=== PATIENT | male | born 1975 | race Hispanic/Latino ===

== ENCOUNTER 2021-03-01 07:31 | Inpatient (IN) | payer SELFPAY ==
--- NOTE | 2021-03-01 07:48 | RAD REPORT ---
EXAM DESCRIPTION: CT - Ct Stroke Brain Wo Cont - 03/01/2021 7:39 am CLINICAL HISTORY: Aphasia;Hemiplegia, right-sided weakness COMPARISON: No comparisons TECHNIQUE: Axial 5 millimeter thick images of the head were obtained without IV contrast. All CT scans are performed using dose optimization technique as appropriate and may include automated exposure control or mA/KV adjustment according to patient size. FINDINGS: No intracranial hemorrhage, mass, or cerebral edema. No acute cortical based infarction id entifiable at this time. There is no cortical edema or sulcal effacement seen. There is a subtle dimi nished attenuation in the left external capsule relative to the right. The overlying insular cortex i s not thickened or edematous. No extra-axial fluid collections. matter-white matter differentia tion is preserved.No atrophy or measurable chronic ischemic changes. Ventricles are normal size. Visualized portions of the mastoid air cells, paranasal sinuses, and orbits are unremarkable. No glob e or orbital content abnormality seen. Findings were telephoned to Dr Aldana at 7:41 a.m.. IMPRESSION: No CT evidence of acute intracranial process. Follow-up MR imaging could be performed for more sensitive assessment of the parenchyma acute CVA rem ains the primary diagnosis.
[2021-03-01 08:04] LABS: Protime INR 0.93
[2021-03-01 08:12] LABS: BUN Blood Urea Nitrogen 11 mg/dL (7-18); Bicarbonate 28 mmol/L (21-32); Glucose Level 280 mg/dL (74-106); Potassium 3.2 mmol/L (3.5-5.1); Sodium Level 137 mmol/L (136-145); Troponin (Emerg Dept Use Only) < 0.02 ng/mL (0.0-0.045)
--- NOTE | 2021-03-01 08:39 | RAD REPORT ---
EXAM DESCRIPTION: CT - Head angio - 03/01/2021 8:22 am CLINICAL HISTORY: TIA, stroke-like symptoms, right-sided weakness TECHNIQUE: During dynamic enhancement using nonionic IV contrast, axial 1 millimeter thick images of the head were obtained. Sagittal and axial reconstruction images were generated using MIP technique and reviewed. All CT scans are performed using dose optimization technique as appropriate and may include automated exposure control or mA/KV adjustment according to patient size. COMPARISON: CT head same date FINDINGS: No aneurysm or vascular malformation identified. Slight vascular fullness the left shakila n fissure is believed to be a summation artifact of adjacent artery and vein. Major venous sinuses are patent. No stenosis, named branch occlusion, vasculitis or other significant vascular finding identifiable. IMPRESSION: Negative CT angio head examination.
--- NOTE | 2021-03-01 08:44 | RAD REPORT ---
EXAM DESCRIPTION: CT - Neck Angio - 03/01/2021 8:26 am CLINICAL HISTORY: cva, right-sided weakness TECHNIQUE: During dynamic enhancement using nonionic IV contrast, axial 2 mm thick images of the nec k were obtained. Sagittal and axial reconstruction images were generated using MIP technique and revi ewed. All CT scans are performed using dose optimization technique as appropriate and may include automated exposure control or mA/KV adjustment according to patient size. COMPARISON: CT head same date, CT angio head same date FINDINGS: No aneurysm or vascular malformation identified. No carotid or vertebral dissection. No aortic arch or great vessel origin abnormality seen. Vertebral artery origins unremarkable as well . No stenosis, vasculitis or other significant carotid artery finding. No focal abnormality of either vertebral artery. Basilar artery is normal. IMPRESSION: Negative CT angio neck examination.
--- NOTE | 2021-03-01 09:04 | RAD REPORT ---
EXAM DESCRIPTION: RAD - Chest Single View - 03/01/2021 8:03 am CLINICAL HISTORY: cva, code stroke chest film COMPARISON: None TECHNIQUE: AP portable chest image was obtained 03/01/2021 8:03 am . FINDINGS: Lung volumes are low and the patient is rotated distorting the cardiomediastinal silhouett e. Lung markings are accentuated by the diminished volume. A dense mass or consolidation is not ident ifiable. A minimal interstitial edema or infiltrate unlikely but cannot be excluded. Heart and vascul ature are normal. No measurable pleural effusion and no pneumothorax. No acute bony abnormality seen. No acute aortic findings suspected. IMPRESSION: No acute cardiopulmonary process.
--- NOTE | 2021-03-01 09:37 | EDPHYS ---
Physician Documentation [facility] Name: Albin Francis Age: 45 yrs Sex: Male : 1975 Arrival Date: 03/01/2021 Time: 07:35 Bed 2 Private MD: ED Physician Christiano Aldana HPI: 03/01 09:23 This 45 yrs old Male presents to ER via EMS with complaints of S/S of Possible jr8 Stroke. 09:23 The patient's problem is reported as dysphasia, weakness, in the right upper extremity, jr8 in the right lower extremity. Onset: The symptoms/episode began/occurred acutely, this morning. Duration: The episode is continuous. Context: symptoms became apparent upon waking, occurred at home. The symptoms are alleviated by nothing. The symptoms are aggravated by walking. Associated signs and symptoms: The patient has no apparent associated signs or symptoms. Severity of symptoms: At their worst the symptoms were moderate in the emergency department the symptoms are unchanged. Patient's baseline: Neuro: alert and fully oriented, Motor: no deficits, Ambulation: walks without assistance, Speech: normal. The patient has not experienced similar symptoms in the past. The patient has not recently seen a physician. This is a 45-year-old male patient that presented to the emergency room with complaints of right-sided deficits. Stated that he went to bed at 0100 this morning and woke up with the deficits. Stated that he was unable to get out of bed very well which cleared him and on the deficits. Patient was brought to the emergency room at that time via EMS. Patient hypertensive upon arrival currently not on any medications for hypertension.. Historical: - Allergies: 07:55 No Known Allergies; jl7 - Home Meds: 07:55 None [Active]; jl7 - PMHx: 07:55 Hypertensive disorder; jl7 - PSHx: 07:55 Colostomy; jl7 - Immunization history:: Adult Immunizations unknown, Client reports receiving the 2nd dose of the Covid vaccine. - Social history:: Smoking status: Patient reports the use of cigarette tobacco products, smokes one-half pack cigarettes per day, Patient/guardian denies using alcohol, street drugs. ROS: 09:23 Eyes: Negative for injury, pain, redness, and discharge, ENT: Negative for injury, jr8 pain, and discharge, Neck: Negative for injury, pain, and swelling, Cardiovascular: Negative for chest pain, palpitations, and edema, Respiratory: Negative for shortness of breath, cough, wheezing, and pleuritic chest pain, Abdomen/GI: Negative for abdominal pain, nausea, vomiting, diarrhea, and constipation, Back: Negative for injury and pain, MS/Extremity: Negative for injury and deformity, Skin: Negative for injury, rash, and discoloration. 09:23 Neuro: Positive for weakness. Exam: : Radiologist reports: No acute findings jr8 09:23 Constitutional: This is a well developed, well nourished patient who is awake, alert, and in no acute distress. Eyes: Pupils equal round and reactive to light, extra-ocular motions intact. Lids and lashes normal. Conjunctiva and sclera are non-icteric and not injected. Cornea within normal limits. Periorbital areas with no swelling, redness, or edema. ENT: Nares patent. No nasal discharge, no septal abnormalities noted. Tympanic membranes are normal and external auditory canals are clear. Oropharynx with no redness, swelling, or masses, exudates, or evidence of obstruction, uvula midline. Mucous membranes moist. Neck: Trachea midline, no thyromegaly or masses palpated, and no cervical lymphadenopathy. Supple, full range of motion without nuchal rigidity, or vertebral point tenderness. No Meningismus. Cardiovascular: Regular rate and rhythm with a normal S1 and S2. No gallops, murmurs, or rubs. Normal PMI, no JVD. No pulse deficits. Respiratory: Lungs have equal breath sounds bilaterally, clear to auscultation and percussion. No rales, rhonchi or wheezes noted. No increased work of breathing, no retractions or nasal flaring. Abdomen/GI: Soft, non-tender, with normal bowel sounds. No distension or tympany. No guarding or rebound. No evidence of tenderness throughout. Back: No spinal tenderness. No costovertebral tenderness. Full range of motion. Skin: Warm, dry with normal turgor. Normal color with no rashes, no lesions, and no evidence of cellulitis. MS/ Extremity: Pulses equal, no cyanosis. Neurovascular intact. Full, normal range of motion. 09:23 Neuro: Orientation: to person, place, time \T\ situation. Mentation: is normal, Memory: is normal, Cranial nerves: CN I not tested, CN II- XII are normal as tested, extraocular movements are intact, Facial palsy and sensory deficits are absent. Speech is slurred, Tongue strength is normal, Cerebellar function: is grossly normal, Motor: moves all fours, strength is 4/5 in the right arm and right leg, Sensation: numbness, that is mild, of the right arm and right leg, seizure activity, is not displayed by the patient, Abnormal movements: there are no abnormal movements. Vital Signs: 07:26 BP 205 / 119; Pulse 77; Resp 15; Temp 97.4; Pulse Ox 96% on R/A; Weight 99.79 kg; Pain jl7 0/10; 08:00 BP 153 / 93; Pulse 67; Resp 15; Pulse Ox 94% ; 7 09:00 BP 188 / 108; Pulse 67; Resp 15; Pulse Ox 96% ; 09:30 BP 207 / 113; Pulse 89; Resp 15; Pulse Ox 97% ; 10:00 BP 176 / 117; Pulse 68; Resp 16; Pulse Ox 96% ; 7 10:30 BP 177 / 116; Pulse 78; Resp 16; Pulse Ox 96% ; 7 11:00 BP 198 / 109; Pulse 79; Resp 15; Pulse Ox 96% ; 7 11:30 BP 202 / 113; Pulse 90; Resp 15; Pulse Ox 95% ; 7 12:00 BP 203 / 99; Pulse 84; Resp 15; Pulse Ox 96% ; 7 12:30 BP 177 / 107; Pulse 63; Resp 16; Pulse Ox 95% ; 7 13:00 BP 183 / 103; Pulse 65; Resp 15; Pulse Ox 95% ; 7 13:30 BP 203 / 117; Pulse 87; Resp 16; Pulse Ox 96% ; 7 14:00 BP 193 / 110; Pulse 86; Resp 15; Pulse Ox 95% ; 7 14:30 BP 189 / 98; Pulse 72; Resp 15; Pulse Ox 95% ; 7 15:00 BP 199 / 101; Pulse 67; Resp 16; Pulse Ox 95% ; 7 15:30 BP 118 / 113; Pulse 81; Resp 15; Pulse Ox 94% ; jl7 NIH Stroke Scale Scores: 07:59 NIHSS Score: 6 jl7 09:35 NIHSS Score: 6 jr8 MDM: 07:35 Patient medically screened. 8 09:35 Data reviewed: vital signs, nurses notes, lab test result(s), EKG, radiologic studies, jr8 CT scan, plain films. Data interpreted: Pulse oximetry: on room air is 96 %. Interpretation: normal. Counseling: I had a detailed discussion with the patient and/or guardian regarding: the historical points, exam findings, and any diagnostic results supporting the discharge/admit diagnosis, lab results, radiology results, the need for further work-up and treatment in the hospital. 03/01 07:36 Order name: Basic Metabolic Panel; Complete Time: 09:18 03/01 07:36 Order name: CBC with Diff; Complete Time: 10:02 03/01 07:36 Order name: Magnesium; Complete Time: 09:18 03/01 07:36 Order name: Protime (+inr); Complete Time: 09:18 03/01 07:36 Order name: Ptt, Activated; Complete Time: 09:18 03/01 07:36 Order name: Troponin (emerg Dept Use Only); Complete Time: 09:18 03/01 07:36 Order name: CT Stroke Brain w/o Contrast; Complete Time: 08:01 03/01 07:36 Order name: Stroke CXR 1 View; Complete Time: 09:18 8 03/01 07:58 Order name: Glucose, Ancillary Testing; Complete Time: 08:01 EDMS 03/01 07:59 Order name: CT Head Angio; Complete Time: 09:18 03/01 08:46 Order name: CREATININE WHOLE BLOOD; Complete Time: 09:18 EDMS 03/01 12:21 Order name: SARS-COV-2 RT PCR; Complete Time: 12:21 EDMS 03/01 16:07 Order name: Hemoglobin A1c; Complete Time: 16:08 EDMS 03/01 07:36 Order name: EKG; Complete Time: 07:36 8 03/01 07:36 Order name: Accucheck; Complete Time: 11:05 03/01 07:36 Order name: Cardiac monitoring; Complete Time: 11:05 03/01 07:36 Order name: EKG - Nurse/Tech; Complete Time: 07:48 03/01 07:36 Order name: IV Saline Lock; Complete Time: 11:03/01 07:36 Order name: Labs collected and sent; Complete Time: 11:03/01 07:36 Order name: NPO; Complete Time: 11:03/01 07:36 Order name: O2 Per Protocol; Complete Time: 11:03/01 07:36 Order name: O2 Sat Monitoring; Complete Time: 11:03/01 07:36 Order name: Stroke Swallow Screen; Complete Time: 11:03/01 07:59 Order name: CT Neck Angio; Complete Time: 09:18 03/01 11:54 Order name: CONS Physician Consult EDMS Administered Medications: 11:16 Drug: foLIC Acid 1 mg Route: IVPB; Site: right forearm; 7 11:17 Follow up: Response: No adverse reaction; IV Status: Completed infusion jl7 11:16 Drug: Aspirin Chewable Tablet 81 mg Route: PO; jl7 12:00 Follow up: Response: No adverse reaction 7 11:17 Drug: PlaVIX (clopidogrel) 75 mg Route: PO; jl7 12:00 Follow up: Response: No adverse reaction jl7 Point of Care Testing: Blood Glucose: 07:26 Blood Glucose: 286 mg/dL; jl7 Ranges: Critical Glucose Levels:Adult <50 mg/dl or >400 mg/dl <40 mg/dl or >180 mg/dl Disposition: 03/02 07:48 Co-signature as Attending Physician, Christiano Aldana MD I agree with the assessment and ida plan of care. Disposition Summary: 03/01/21 09:37 Hospitalization Ordered Hospitalization Status: Inpatient Admission [facility] Provider: Fred Robles [facility] Location: Telemetry/MedSurg (Inpatient) [facility] Condition: Fair [facility] Problem: new [facility] Symptoms: have improved [facility] Bed/Room Type: Standard [facility] Room Assignment: 225(03/01/21 14:32) bd Diagnosis - Cerebral infarction, unspecified [facility] Forms: - Medication Reconciliation Form jr8 - SBAR form 8 NIH Stroke Scale - NIH Stroke Score Date: 03/01/2021 Time: 07:59 Total Score = 6 1a. Level of Consciousness (LOC) - 0(Alert) 1b. Level of Consciousness (LOC) (Month \T\ Age) - 0(Both) 1c. LOC Commands (Open \T\ Closes Eyes/Asl Interpreter) - 0(Both) 2. Best Gaze (Lateral Gaze Paresis) - 0(Normal) 3. Visual Field Loss - 0(No visual loss) 4. Facial Palsy - 0(Normal) 5a. Left Arm: Motor (10-second hold) - 0(No drift) 5b. Right Arm: Motor (10-second hold) - 2(Drift, some effort against gravity) 6a. Left Leg: Motor (5-second hold - always test supine) - 0(No drift) 6b. Right Leg: Motor (5-second hold - always test supine) - 2(Drift, some effort against gravity) 7. Limb Ataxia (finger/nose \T\ heel/jackson - test with eyes open) - 0(Absent) 8. Sensory Loss (pinprick arms/legs/face) - 1(Mild to moderate loss) 9. Best Language: Aphasia (description/naming/reading) - 0(No aphasia) 10. Dysarthria (speech clarity - read or repeat words) - 1(Mild to Moderate) 11. Extinction and Inattention (visual/tactile/auditory/spatial/personal) - 0(No abnormality) Initials: jl7 NIH Stroke Scale - NIH Stroke Score Date: 03/01/2021 Time: 09:35 Total Score = 6 1a. Level of Consciousness (LOC) - 0(Alert) 1b. Level of Consciousness (LOC) (Month \T\ Age) - 0(Both) 1c. LOC Commands (Open \T\ Closes Eyes/Asl Interpreter) - 0(Both) 2. Best Gaze (Lateral Gaze Paresis) - 0(Normal) 3. Visual Field Loss - 0(No visual loss) 4. Facial Palsy - 0(Normal) 5a. Left Arm: Motor (10-second hold) - 0(No drift) 5b. Right Arm: Motor (10-second hold) - 2(Drift, some effort against gravity) 6a. Left Leg: Motor (5-second hold - always test supine) - 0(No drift) 6b. Right Leg: Motor (5-second hold - always test supine) - 2(Drift, some effort against gravity) 7. Limb Ataxia (finger/nose \T\ heel/jackson - test with eyes open) - 0(Absent) 8. Sensory Loss (pinprick arms/legs/face) - 1(Mild to moderate loss) 9. Best Language: Aphasia (description/naming/reading) - 0(No aphasia) 10. Dysarthria (speech clarity - read or repeat words) - 1(Mild to Moderate) 11. Extinction and Inattention (visual/tactile/auditory/spatial/personal) - 0(No abnormality) Initials: jr8 Signatures: Dispatcher [employer] EDMS Nila Cesar Corey, MD MD cha Roszak, Josh, PA PA jr8 Natalia Payne RN RN jl7 Corrections: (The following items were deleted from the chart) 03/01 07:56 07:55 Home Meds: Unable to obtain; jl7 jl7 11:04 10:46 CORONAVIRUS+MR.LAB.BRZ ordered. EDMS EDMS 14:32 09:37 jr8 bd
--- NOTE | 2021-03-01 09:37 | ER ---
Nurse's Notes [facility] Name: Albin Francis Age: 45 yrs Sex: Male : 1975 Arrival Date: 03/01/2021 Time: 07:35 Bed 2 Private MD: Diagnosis: Cerebral infarction, unspecified Presentation: 03/01 07:26 Chief complaint: EMS states: Went to sleep at 0100, woke at 0600 with right sided jl7 weakness and slurred speech. 07:26 Coronavirus screen: Vaccine status: Patient reports receiving the 2nd dose of the covid jl7 vaccine. Date February 22, 2021 Pfizer Client denies travel out of the [place] in the last 14 days. At this time, the client does not indicate any symptoms associated with coronavirus-19. Ebola Screen: No symptoms or risks identified at this time. Initial Sepsis Screen: Does the patient meet any 2 criteria? No. Patient's initial sepsis screen is negative. Does the patient have a suspected source of infection? No. Patient's initial sepsis screen is negative. Risk Assessment: Do you want to hurt yourself or someone else? Patient reports no desire to harm self or others. Onset of symptoms is unknown. 07:26 Method Of Arrival: EMS: [facility] 07:26 Acuity: JORDAN 2 [facility] 07:54 An acute neurological deficit is present. The charge nurse has been notified. The [facility] patient has been moved to a treatment area. Pre-hospital glucose is not applicable to this patient. Care prior to arrival: None. Triage Assessment: 07:26 The onset of the patients symptoms was at an unknown time. General: Appears in no jl apparent distress. uncomfortable, Behavior is calm, cooperative, appropriate for age. Pain: Denies pain. Neuro: Level of Consciousness is awake, alert, obeys commands, Oriented to person, place, time, situation, Reports weakness in right arm and right leg. Cardiovascular: Patient's skin is warm and dry. Respiratory: Airway is patent Respiratory effort is even, unlabored, Respiratory pattern is regular, symmetrical. GI: Abdomen is obese. Derm: Skin is pink, warm \T\ dry. Stroke Activation: Symptom onset > 6 hours Physician: Stroke Attending; Name: ; Notified At: ; Arrived At: Physician: Chief Stroke Resident; Name: ; Notified At: ; Arrived At: Physician: Stroke Resident; Name: ; Notified At: ; Arrived At: Physician: ED Attending; Name: Jovan; Notified At: 07:26; Arrived At: 07:26 Physician: ED Resident; Name: ; Notified At: ; Arrived At: Historical: - Allergies: 07:55 No Known Allergies; jl7 - Home Meds: 07:55 None [Active]; jl7 - PMHx: 07:55 Hypertensive disorder; jl7 - PSHx: 07:55 Colostomy; jl7 - Immunization history:: Adult Immunizations unknown, Client reports receiving the 2nd dose of the Covid vaccine. - Social history:: Smoking status: Patient reports the use of cigarette tobacco products, smokes one-half pack cigarettes per day, Patient/guardian denies using alcohol, street drugs. Screenin:00 Abuse screen: Denies threats or abuse. Denies injuries from another. Nutritional jl7 screening: No deficits noted. Tuberculosis screening: No symptoms or risk factors identified. Fall Risk No fall in past 12 months (0 pts). Secondary diagnosis (15 points) CVA, IV access (20 points). Ambulatory Aid- None/Bed Rest/Nurse Assist (0 pts). Gait- Weak (10 pts.). Mental Status- Oriented to own ability (0 pts). Total Vale Fall Scale indicates High Risk Score (45 or more points). Fall prevention measures have been instituted. Side Rails Up X 2 Placed Close to Nursing Station Frequent Obs/Assessments Occuring As available patient and family educated on Fall Prevention Program and Strategies. Assessment: 07:59 VAN Scoring: Arm Drift: Severe drift Visual Disturbance: No visual disturbance noted. jl7 Aphasia: No aphasia noted. Neglect: No neglect noted. The patient has not been NPO before screening. The patient is currently on the following diet: home The patient is alert, and able to follow commands. The patient exhibits slurred or garbled speech. Provider notified of the indication for Speech Therapy consult. The patient is not exhibiting difficulty speaking. The patient does not exhibit difficulty understanding words. The patient is able to swallow own secretions with no drooling or need for suction. Patient tolerated one teaspoon of water. No drooling, immediate coughing, gurgling, or clearing of the throat was noted. The patient tolerated 90mL of water. No drooling, immediate coughing, gurgling, or clearing of the throat was noted. The patient passed the bedside swallow screening. Oral medications may be given as ordered. Contact Physician for further diet orders. Provider notified of bedside swallow screening results: Pranav ALCALA. T-PA (Activase) Screening: Contraindications: Patient reports onset of signs and symptoms of stroke greater than 6 hours ago: Yes. 08:15 Reassessment: Pt to CT via stretcher. jl7 09:00 Reassessment: Patient appears in no apparent distress at this time. No changes from jl7 previously documented assessment. Patient and/or family updated on plan of care and expected duration. Pain level reassessed. Patient is alert, oriented x 3, equal unlabored respirations, skin warm/dry/pink. 10:00 Reassessment: Patient appears in no apparent distress at this time. No changes from jl7 previously documented assessment. Patient and/or family updated on plan of care and expected duration. Pain level reassessed. Patient is alert, oriented x 3, equal unlabored respirations, skin warm/dry/pink. 11:00 Reassessment: Patient appears in no apparent distress at this time. No changes from jl7 previously documented assessment. Patient and/or family updated on plan of care and expected duration. Pain level reassessed. Patient is alert, oriented x 3, equal unlabored respirations, skin warm/dry/pink. 12:00 Reassessment: Patient appears in no apparent distress at this time. No changes from jl7 previously documented assessment. Patient and/or family updated on plan of care and expected duration. Pain level reassessed. Patient is alert, oriented x 3, equal unlabored respirations, skin warm/dry/pink. 13:00 Reassessment: Patient appears in no apparent distress at this time. No changes from jl7 previously documented assessment. Patient and/or family updated on plan of care and expected duration. Pain level reassessed. Patient is alert, oriented x 3, equal unlabored respirations, skin warm/dry/pink. 14:00 Reassessment: Patient appears in no apparent distress at this time. No changes from jl7 previously documented assessment. Patient and/or family updated on plan of care and expected duration. Pain level reassessed. Patient is alert, oriented x 3, equal unlabored respirations, skin warm/dry/pink. 15:32 Reassessment: pt to MRI via stretcher. kc4 Vital Signs: 07:26 BP 205 / 119; Pulse 77; Resp 15; Temp 97.4; Pulse Ox 96% on R/A; Weight 99.79 kg; Pain jl7 0/10; 08:00 BP 153 / 93; Pulse 67; Resp 15; Pulse Ox 94% ; jl7 09:00 BP 188 / 108; Pulse 67; Resp 15; Pulse Ox 96% ; jl7 09:30 BP 207 / 113; Pulse 89; Resp 15; Pulse Ox 97% ; jl7 10:00 BP 176 / 117; Pulse 68; Resp 16; Pulse Ox 96% ; jl7 10:30 BP 177 / 116; Pulse 78; Resp 16; Pulse Ox 96% ; jl7 11:00 BP 198 / 109; Pulse 79; Resp 15; Pulse Ox 96% ; jl7 11:30 BP 202 / 113; Pulse 90; Resp 15; Pulse Ox 95% ; jl7 12:00 BP 203 / 99; Pulse 84; Resp 15; Pulse Ox 96% ; jl7 12:30 BP 177 / 107; Pulse 63; Resp 16; Pulse Ox 95% ; jl7 13:00 BP 183 / 103; Pulse 65; Resp 15; Pulse Ox 95% ; jl7 13:30 BP 203 / 117; Pulse 87; Resp 16; Pulse Ox 96% ; jl7 14:00 BP 193 / 110; Pulse 86; Resp 15; Pulse Ox 95% ; jl7 14:30 BP 189 / 98; Pulse 72; Resp 15; Pulse Ox 95% ; jl7 15:00 BP 199 / 101; Pulse 67; Resp 16; Pulse Ox 95% ; jl7 15:30 BP 118 / 113; Pulse 81; Resp 15; Pulse Ox 94% ; jl7 NIH Stroke Scale Scores: 07:59 NIHSS Score: 6 jl7 09:35 NIHSS Score: 6 jr8 ED Course: 07:26 Arm band placed on right wrist. jl7 07:35 Patient arrived in ED. jr8 07:35 Pranav Burnett PA is PHCP. jr8 07:35 Christiano Aldana MD is Attending Physician. jr8 07:39 CT Stroke Brain w/o Contrast In Process Unspecified. EDMS 07:48 EKG done, by ED staff, reviewed by Pranav ALCALA. em1 07:50 Natalia Payne, AIDEN is Primary Nurse. jl7 07:53 Triage completed. jl7 08:00 Patient has correct armband on for positive identification. Placed in gown. Bed in low jl7 position. Call light in reach. Side rails up X2. internal medicine doctor on. Pulse ox on. NIBP on. Warm blanket given. 08:03 Stroke CXR 1 View In Process Unspecified. EDMS 08:22 CT Head Angio In Process Unspecified. EDMS 08:26 CT Neck Angio In Process Unspecified. EDMS 09:36 Fred Robles is Hospitalizing Provider. jr8 15:45 Nicci Bose is Primary Nurse. kc4 15:46 Nicci Bose is Primary Nurse. kc4 15:52 Natalia Payne, AIDEN is Primary Nurse. jl7 16:11 Patient admitted, IV remains in place. intact, No redness/swelling at site. jl7 16:11 No provider procedures requiring assistance completed. jl7 Administered Medications: 11:16 Drug: foLIC Acid 1 mg Route: IVPB; Site: right forearm; jl7 11:17 Follow up: Response: No adverse reaction; IV Status: Completed infusion jl7 11:16 Drug: Aspirin Chewable Tablet 81 mg Route: PO; jl7 12:00 Follow up: Response: No adverse reaction jl7 11:17 Drug: PlaVIX (clopidogrel) 75 mg Route: PO; jl7 12:00 Follow up: Response: No adverse reaction jl7 Point of Care Testing: Blood Glucose: 07:26 Blood Glucose: 286 mg/dL; jl7 Ranges: Outcome: 09:37 Decision to Hospitalize by Provider. jr8 16:11 Admitted to Tele accompanied by [facility], via stretcher, room 225, with chart, Report jl7 called to AIDEN Fung 16:11 Condition: stable 16:11 Discharge instructions given to patient, Instructed on the need for admit, Demonstrated understanding of instructions. 16:12 Patient left the ED. jl7 NIH Stroke Scale - NIH Stroke Score Date: 03/01/2021 Time: 07:59 Total Score = 6 1a. Level of Consciousness (LOC) - 0(Alert) 1b. Level of Consciousness (LOC) (Month \T\ Age) - 0(Both) 1c. LOC Commands (Open \T\ Closes Eyes/Soft Sugar Operator Head) - 0(Both) 2. Best Gaze (Lateral Gaze Paresis) - 0(Normal) 3. Visual Field Loss - 0(No visual loss) 4. Facial Palsy - 0(Normal) 5a. Left Arm: Motor (10-second hold) - 0(No drift) 5b. Right Arm: Motor (10-second hold) - 2(Drift, some effort against gravity) 6a. Left Leg: Motor (5-second hold - always test supine) - 0(No drift) 6b. Right Leg: Motor (5-second hold - always test supine) - 2(Drift, some effort against gravity) 7. Limb Ataxia (finger/nose \T\ heel/jackson - test with eyes open) - 0(Absent) 8. Sensory Loss (pinprick arms/legs/face) - 1(Mild to moderate loss) 9. Best Language: Aphasia (description/naming/reading) - 0(No aphasia) 10. Dysarthria (speech clarity - read or repeat words) - 1(Mild to Moderate) 11. Extinction and Inattention (visual/tactile/auditory/spatial/personal) - 0(No abnormality) Initials: jl7 NIH Stroke Scale - NIH Stroke Score Date: 03/01/2021 Time: 09:35 Total Score = 6 1a. Level of Consciousness (LOC) - 0(Alert) 1b. Level of Consciousness (LOC) (Month \T\ Age) - 0(Both) 1c. LOC Commands (Open \T\ Closes Eyes/Soft Sugar Operator Head) - 0(Both) 2. Best Gaze (Lateral Gaze Paresis) - 0(Normal) 3. Visual Field Loss - 0(No visual loss) 4. Facial Palsy - 0(Normal) 5a. Left Arm: Motor (10-second hold) - 0(No drift) 5b. Right Arm: Motor (10-second hold) - 2(Drift, some effort against gravity) 6a. Left Leg: Motor (5-second hold - always test supine) - 0(No drift) 6b. Right Leg: Motor (5-second hold - always test supine) - 2(Drift, some effort against gravity) 7. Limb Ataxia (finger/nose \T\ heel/jackson - test with eyes open) - 0(Absent) 8. Sensory Loss (pinprick arms/legs/face) - 1(Mild to moderate loss) 9. Best Language: Aphasia (description/naming/reading) - 0(No aphasia) 10. Dysarthria (speech clarity - read or repeat words) - 1(Mild to Moderate) 11. Extinction and Inattention (visual/tactile/auditory/spatial/personal) - 0(No abnormality) Initials: stone Signatures: Dispatcher [employer] Greg Khan em1 Pranav Burnett PA PA jr8 Natalia Payne RN RN jl7 Nicci Bose4 Corrections: (The following items were deleted from the chart) 07:56 07:55 Home Meds: Unable to obtain; alecia alston
[2021-03-01 09:44] LABS: Absolute Lymphocytes (CBC) 1.5 K/uL (0.7-4.9); Basophils % 0.6 % (0-1.3); Hematocrit 46.7 % (39.6-49.0); Lymphocytes % 21.5 % (15.3-44.8); MPV 8.9 fL (7.6-11.3); RBC Red Blood Cell Count 5.34 M/uL (4.33-5.43)
[2021-03-01] MEDS ORDERED: CLOPIDOGREL 75 MG TABLET ONE (11:32)
[2021-03-01] MEDS ORDERED: FOLIC ACID 5 MG/ML VIAL ONE (11:33)
[2021-03-01] MEDS ORDERED: ASPIRIN 81 MG CHEWABLE TABLET ONE (11:34)
[2021-03-01] MEDS ORDERED: ONDANSETRON 4 MG/2 ML VIAL IV PRN (12:17)
[2021-03-01] MEDS ORDERED: POTASSIUM CL SA 10 MEQ TAB PO ONE (15:58)
--- NOTE | 2021-03-01 17:19 | RAD REPORT ---
EXAM DESCRIPTION: MRI - Brain W/Wo Cont - 03/01/2021 4:57 pm CLINICAL HISTORY: Aphasia;Hemiplegia, right-sided weakness COMPARISON: head CT March 01, 2021 TECHNIQUE: Axial, sagittal, and coronal magnetic images of the brain were obtained. 20 cc MultiHance administered intravenously FINDINGS: Small area of abnormal signal within the white matter left frontal lobe and right thalamus compatible with old infarction. The ventricles are normal in caliber. Diffusion-weighted/ ADC mapping sequences demonstrate 2.1 x 0.9 centimeter area of abnormal signal wi thin the white matter adjacent to posterior aspect of the left lateral ventricle. This is compatible with acute infarction. No abnormal enhancement within the brain is seen. An extra-axial fluid collection is not noted. Fluid within the sinuses/mastoids is not seen IMPRESSION: 2.1 x 0.9 centimeter acute left periventricular white matter infarct
--- NOTE | 2021-03-01 17:20 | RAD REPORT ---
EXAM DESCRIPTION: MRI - MRA Neck W/Wo Cont - 03/01/2021 4:56 pm CLINICAL HISTORY: Aphasia;Hemiplegia, right-sided weakness COMPARISON: None. TECHNIQUE: Magnetic resonance angiogram of the neck was performed. 20 cc MultiHance was administered intravenously. 3D MIPS reconstruction performed FINDINGS: Mild plaque within common carotid, internal carotid and external carotid arteries . A high -grade stenosis is not noted. The vertebral arteries are codominant without visualization of an abnormality. IMPRESSION: Mild plaque within the carotid arteries NASCET criteria used. Mild 0-49% stenosis Moderate 50-69% stenosis Severe 70-99% stenosis
--- NOTE | 2021-03-01 17:21 | RAD REPORT ---
EXAM DESCRIPTION: MRI - MRA Head Wo Cont - 03/01/2021 4:50 pm CLINICAL HISTORY: Aphasia;Hemiplegia, right-sided weakness COMPARISON: None. TECHNIQUE: Magnetic resonance angiogram was performed. 3D MIPS reconstruction performed FINDINGS: The anterior cerebral, middle cerebral, posterior cerebral, distal internal carotid and ba silar arteries do not demonstrate a significant stenosis. An aneurysm is not displayed. IMPRESSION: Unremarkable MRA brain.
--- NOTE | 2021-03-01 18:00 | P.HP ---
Certification for Inpatient Patient admitted to: Inpatient With expected LOS: >2 Midnights Patient will require the following post-hospital care: Rehabilitation Practitioner: I am a practitioner with admitting privileges, knowledge of patient current condition, hospital course, and medical plan of care. Services: Services provided to patient in accordance with Admission requirements found in Title 42 Section 412.3 of the Code of Federal Regulations Patient History Date of Service: 03/01/21 Primary Care Provider: none Reason for admission: possible CVA History of Present Illness: This is a 45 y/o M with HTN who presents today with new onset right sided motor deficits. Last known normal was this morning before he went to bed. Woke up this morning and had trouble getting out of bed. C/o weakness and numbness on the R side and slurred speech. States this has never occurred before. Pt has not seen a doctor recently. Pt hypertensive upon arrival at ER. NIHSS of 6 Neck CTA IMPRESSION: Negative CT angio neck examination. Head CTA: IMPRESSION: Negative CT angio head examination. Brain CT: IMPRESSION: No CT evidence of acute intracranial process. Follow-up MR imaging could be performed for more sensitive assessment of the parenchyma acute CVA remains the primary diagnosis. CXR: IMPRESSION: Negative CT angio head examination. Allergies No Known Allergies Allergy (Unverified 03/01/21 12:17) Home Medications: NK [No Home Meds] 03/01/21 - Past Medical/Surgical History -: HTN -: colostomy Psychosocial/ Personal History: lives with - Social History Smoking Status: Light Tobacco smoker (1-9 cigarettes/day) Alcohol use: Yes CD- Drugs: No Caffeine use: Yes Review of Systems 10-point ROS is otherwise unremarkable Physical Examination - Vital Signs Temperature: 98.2 F Blood Pressure: 202/119 Pulse: 80 Respirations: 18 Pulse Ox (%): 97 - Physical Exam General: Alert, Oriented x3, Cooperative HEENT: Atraumatic, Mucous membr. moist/pink, EOMI Neck: Supple Respiratory: Clear to auscultation bilaterally, Normal air movement Cardiovascular: No edema, Normal S1 S2 Capillary refill: <2 Seconds Gastrointestinal: Normal bowel sounds, Soft and benign, No tenderness, Other (colostomy bag present) Musculoskeletal: No swelling, No contractures, No warmth Integumentary: No rashes, No breakdown Neurological: Sensation intact, Normal affect, Abnormal speech (slurred speech), Abnormal strength (R sided weakness in arm and leg) Lymphatics: No axilla or inguinal lymphadenopathy - Studies Laboratory Data (last 24 hrs) 03/01/21 07:45: PT 10.7, INR 0.93, APTT 24.0 L 03/01/21 07:45: WBC 7.00, Hgb 16.3, Hct 46.7, Plt Count 211 03/01/21 07:45: Sodium 137, Potassium 3.2 L, BUN 11, Creatinine 0.52 L, Glucose 280 H, Magnesium 2.0 Assessment and Plan - Plan impression: R sided hemiparesis likely to CVA HTN plan: will admit patient under stroke protocol neuro consulted aspirin/plavix start statin, folic acid MRI ordered carotid u/s ordered PT/ST consulted swallow eval at bedside, diet as tolerated if patient passes lipid panel and A1c pending DVT prophylaxis: lovenox Discharge Plan: Home Plan to discharge in: Greater than 2 days - Advance Directives Does patient have a Living Will: No Does patient have a Durable POA for Healthcare: No - Code Status/Comfort Care Code Status Assessed: Yes (full) Time Spent Managing Pts Care (In Minutes): 70
[2021-03-01 18:04] VITALS: BMI 35.5
[2021-03-01] MEDS: NA CHLORIDE 0.9% 1,000 ML IV SCH (18:20)
--- NOTE | 2021-03-01 18:44 | RAD REPORT ---
EXAM DESCRIPTION: USCarotid Artery Bilateral03/01/2021 6:37 pm CLINICAL HISTORY: cva FINDINGS: The velocity of the right internal carotid artery equals 48 cm/sec. The right ICA/CCA rati o .5 The velocity of the left internal carotid artery equals 59 cm/sec. The left ICA/CCA ratio .9 Mild plaque is present within the carotid arteries. The vertebral arteries demonstrate antegrade flow IMPRESSION: Mild plaque within the carotid arteries without evidence of a hemodynamically significan t stenosis NASCET criteria used. Mild 0-49% stenosis Moderate 50-69% stenosis Severe 70-99% stenosis
[2021-03-02] MEDS: NA CHLORIDE 0.9% 1,000 ML IV SCH ×2 (02:20→15:44)
[2021-03-02] MEDS ORDERED: KCL 20 MEQ/100 mL IVPB 20 MEQ/100 ML BAG IV SCH (04:00)
[2021-03-02 06:15] LABS: Absolute Lymphocytes (CBC) 2.2 K/uL (0.7-4.9); Basophils % 0.6 % (0-1.3); Hematocrit 46.6 % (39.6-49.0); Lymphocytes % 23.6 % (15.3-44.8); MPV 8.2 fL (7.6-11.3); RBC Red Blood Cell Count 5.29 M/uL (4.33-5.43)
[2021-03-02 06:44] LABS: BUN Blood Urea Nitrogen 11 mg/dL (7-18); Bicarbonate 28 mmol/L (21-32); Glucose Level 211 mg/dL (74-106); HDL Cholesterol 31 mg/dL (40-60); Sodium Level 139 mmol/L (136-145)
[2021-03-02 06:56] LABS: LDL, Direct 148 mg/dL (100-129)
[2021-03-02] MEDS: CLOPIDOGREL 75 MG TABLET PO SCH (08:41)
[2021-03-02] MEDS: ASPIRIN EC 81 MG TAB PO SCH (08:41)
[2021-03-02] MEDS: ENOXAPARIN 40 MG/0.4 ML SQ SCH (08:41)
[2021-03-02] MEDS: FOLIC ACID 1 MG TABLET PO SCH (08:41)
[2021-03-02 13:05] LABS: Urine Appearance CLOUDY (Clear); Urine Bilirubin NEGATIVE (Negative); Urine Blood NEGATIVE (Negative); Urine Color YELLOW (Yellow); Urine Glucose 3+ (Negative); Urine Microscopic Reflex ORDER UMIC; Urine Protein 2+ (Negative); Urine Specific Gravity 1.025 (1.005-1.030); Urine Urobilinogen 0.2 mg/dL (0.2-1.0)
[2021-03-02 13:18] LABS: Urine Amorphous Sediment 1+ /HPF (NONE SEEN); Urine Bacteria <20 /HPF (NONE SEEN); Urine Mucus 2+ /HPF (NONE SEEN); Urine RBC <5 /HPF (NONE SEEN)
[2021-03-02] MEDS ORDERED: D50W 25 GM/50 ML SYRINGE IV PRN (13:26)
[2021-03-02] MEDS ORDERED: GLUCAGON 1 MG/VIAL IM PRN (13:26)
--- NOTE | 2021-03-02 13:44 | P.PN ---
Subjective Date of Service: 03/02/21 Primary Care Provider: none Chief Complaint: possible CVA Subjective: Improving (able to move extremities more than yesterday, improved speech) <Gay Brooks - Last Filed: 03/02/21 13:27> Date of Service: 03/02/21 <Coleman Lacy - Last Filed: 03/02/21 17:55> Review of Systems 10-point ROS is otherwise unremarkable <Gay Brooks - Last Filed: 03/02/21 13:27> Physical Examination - Vital Signs Temperature: 98.0 F Blood Pressure: 201/106 Pulse: 83 Respirations: 16 Pulse Ox (%): 92 <Gay Brooks - Last Filed: 03/02/21 13:27> Assessment And Plan - Plan physical exam: General: Alert, Oriented x3, Cooperative HEENT: Atraumatic, Mucous membr. moist/pink, EOMI Respiratory: Clear to auscultation bilaterally, Normal air movement Cardiovascular: No edema, Normal S1 S2 Gastrointestinal: Normal bowel sounds, Soft and benign, No tenderness, Colostomy bag present Musculoskeletal: No swelling, No contractures, No warmth Integumentary: No rashes, No breakdown Neurological: Normal affect, normal tone, CECILIO 4/5 PAIGE and RLL impression: R sided hemiparesis secondary to acute brain infarct HTN new diagnosis of diabetes hyperlipidemia plan: imaging consistent with acute infarct patient's motor function improving. able to move extremities better than yesterday speech is more clear today neuro consulted aspirin/plavix continue statin, folic acid PT/ST consulted NPO until speech can evaluate accuchecks and mild SSI consistently elevated blood pressures - start IV hydralazine prn will start lisinopril tomorrow once patient is no longer NPO educated patient on lifestyle changes code: full DVT prophylaxis: lovenox Time Spent Managing PTS Care (In Minutes): 30 <Gay Brooks - Last Filed: 03/02/21 13:27> - Plan Patient seen and examined this morning Has had some improvement in right-sided weakness PT/ST consulted, still with some slurring significant HTN - IV hydralazine ordered, goal for SBP: 180s <Coleman Lacy - Last Filed: 03/02/21 17:55>
[2021-03-02] MEDS: INSULIN -REGULAR HUMAN 50 UNIT/0.5 ML ML SQ SCH ×2 (16:14→21:00)
--- NOTE | 2021-03-02 21:48 | CON ---
Reason For Consultation: Consultation called because of stroke. History Of Present Illness: Mr. Morales is a 45-year-old, left-handed patient who has hyperten gudelia. Does not take his medications, and yesterday morning developed sudden onset right face, arm an d leg numbness, weakness, slurred speech and incoordination. The patient was brought to [facility]. However, in terms of symptom onset, he woke at 6 a.m. with the symptoms with sleep around 1 a.m. and he arrived at [facility] at 7:35 while out of the window for TPA. He did have a h ead CT scan at [facility] showing no evidence of acute ischemic or hemorrhagic change, howev er a subsequent brain MRI identified a 2.1 x 0.9 cm area of abnormal signal in the white matter adjac ent to the posterior aspect of the left lateral ventricle compatible with acute infarction, and this did account for patient's right-sided deficits. In the emergency room, he did have hypokalemia and i t was replaced. He was given folic acid, Plavix, aspirin, and he had very elevated blood pressures w ith around 201/106, and his blood pressures have been addressed gingerly and to lower them to around 180 over the next day or two. He has noted some slight improvement in right upper and lower extremit y strength since symptom onset. Past Medical History: As noted. Social History: He smokes tobacco, half a pack cigarettes daily and some alcohol. No IV drug use. Past Surgical History: Had a colostomy. Past Medical History: Hypertension. Medications: At home none. Allergies: NO KNOWN DRUG ALLERGIES. Review of Systems: Negative on 10-point system aside from mentioned above including nausea, vomiting, myalgias, arthralg ias, headache, weight change, rash, psychiatric complaints, gastrointestinal, genitourinary complaint s. Physical Examination: Vital Signs: Blood pressure , pulse 85, respiratory rate 16, temperature 98.5, oxygen satu ration 96% on room air. Weight 220 pounds, height 5 feet 6 inches, BMI 35.5. General: Mr. Morales is resting in bed, in no acute distress. HEENT: He is normocephalic, atraumatic. Sclerae anicteric. Oropharynx is pink and moist. Neck: Supple. Chest: Clear. Heart: Regular. Extremities: Show no edema or cyanosis. Neurological: He is alert and oriented to situation, place, and person. He communicates effectively , more so in [place]ese than [place]. Cranial nerves remarkable for right, decreased nasolabial fold. Mild extinction in the right visual field. His tongue extrudes in the midline and his right shoulder has 4/5 elevation. He has right upper and lower extremity 3+ to 4-/5 proximally and distally. Left upper and lower extremity 5/5. Sensation decreased to light touch temperature in the right arm and leg compared to the left side. Coordination intact in upper and lower extremities. Gait, he will be ambulated with the physical therapist, and after the evaluation, it was recommended for him to be di scharged to inpatient rehabilitation unit due to decreased mobility and weakness in the right upper e xtremity. It should be noted that the patient has no resources, and therefore he is not able to be a dmitted in to the rehabilitation unit unless some other plan could be made. Laboratory Studies: Complete blood count with differential is normal. Coagulation panel shows aviva l INR 0.93. Chemistries show blood glucose elevated to 286. Hemoglobin A1c elevated at 9.9, triglyc erides elevated at 585, cholesterol elevated at 264, LDL cholesterol 148, HDL cholesterol low at 31. TSH normal at 1.98. Kidney function is normal. Urinalysis shows 3+ glucose, trace ketones, 2+ prot ein. COVID-19 test is negative. Carotid artery ultrasound shows mild plaque in the left carotid art eries but no evidence of hemodynamically significant stenosis. Neck CT angiogram negative for any si gnificant abnormalities. Head CT angiogram negative for any intracranial vessel abnormalities. Ches t x-ray shows no acute cardiopulmonary process. EKG result not immediately available. Assessment: Mr. Morales is a 45-year-old patient with multiple stroke risk factors including untreated hypertension, diabetes mellitus, dyslipidemia, cigarette smoking who comes in with a left subcortical stroke producing right face, arm and leg numbness and weakness and incoordination. He has NIH Strok e Scale of 6. Plan: 1.Aggressive management of hypertension, diabetes mellitus, dyslipidemia. 2.Aspirin 81 mg, Plavix 75 mg daily. 3.Folic acid 1 mg daily. 4.Patient will benefit from aggressive physical therapy. However, he has no resources and is theref ore difficult for him to be admitted to the inpatient rehabilitation unit, which would be otherwise r ecommended. 5.The patient was given a series of exercises to do if he is unable to be admitted to inpatient reha bilitation unit. At this point, he is not really able to perform any work requiring him to operate h eavy machinery or perform coordinated tasks requiring the use of both sides of his body. Those may h ave to await improvement in his right upper and lower extremity weakness and incoordination. LB/MODL Voice ID: [id number] Report ID: [id number]
[2021-03-03] MEDS: HYDRALAZINE HCL 20 MG/ML VIAL IV PRN ×3 (02:07→17:09)
[2021-03-03] MEDS: NA CHLORIDE 0.9% 1,000 ML IV SCH ×3 (04:30→18:00)
[2021-03-03 06:08] LABS: Absolute Lymphocytes (CBC) 1.8 K/uL (0.7-4.9); Basophils % 0.5 % (0-1.3); Hematocrit 47.9 % (39.6-49.0); Lymphocytes % 21.6 % (15.3-44.8); MPV 8.2 fL (7.6-11.3); RBC Red Blood Cell Count 5.43 M/uL (4.33-5.43)
[2021-03-03 06:09] LABS: BUN Blood Urea Nitrogen 8 mg/dL (7-18); Bicarbonate 27 mmol/L (21-32); Glucose Level 168 mg/dL (74-106); Potassium 3.3 mmol/L (3.5-5.1); Sodium Level 140 mmol/L (136-145)
[2021-03-03] MEDS: INSULIN -REGULAR HUMAN 50 UNIT/0.5 ML ML SQ SCH ×4 (07:30→20:13)
[2021-03-03] MEDS: CLOPIDOGREL 75 MG TABLET PO SCH (08:37)
[2021-03-03] MEDS: ASPIRIN EC 81 MG TAB PO SCH (08:37)
[2021-03-03] MEDS: lisinopriL 20 MG TAB PO SCH ×2 (08:37→19:01)
[2021-03-03] MEDS: FOLIC ACID 1 MG TABLET PO SCH (08:37)
[2021-03-03] MEDS: ENOXAPARIN 40 MG/0.4 ML SQ SCH (09:00)
[2021-03-03] MEDS: KCL 20 MEQ/100 mL IVPB 20 MEQ/100 ML BAG IV SCH ×2 (09:30→11:40)
--- NOTE | 2021-03-03 09:35 | ECHO ---
HEIGHT: 5 ft 6 in WEIGHT: 220 lb 0 oz DATE OF STUDY: 03/02/[address]: Gay Brooks 2-DIMENSIONAL: YES M.MODE: YES DOPPLER: YES COLOR FLOW: YES TDS: PORTABLE: DEFINITY: BUBBLE STUDY: DIAGNOSIS: STROKE CARDIAC HISTORY: CATHERIZATION: SURGERY: PROSTHETIC VALVE: PACEMAKER: MEASUREMENTS (cm) DIASTOLIC (NORMALS) SYSTOLIC (NORMALS) IVSd 1.3 (0.6-1.2) LA Diam 3.9 (1.9-4.0) LVEF 56% LVIDd 5.4 (3.5-5.7) LVIDs 3.8 (2.0-3.5) %FS 29% LVPWd 1.4 (0.6-1.2) Ao Diam 3.2 (2.0-3.7) 2 DIMENSIONAL ASSESSMENT: RIGHT ATRIUM: LEFT ATRIUM: RIGHT VENTRICLE: LEFT VENTRICLE: TRICUSPID VALVE: MITRAL VALVE: PULMONIC VALVE: AORTIC VALVE: PERICARDIAL EFFUSION: AORTIC ROOT: LEFT VENTRICULAR WALL MOTION: DOPPLER/COLOR FLOW: COMMENTS: NORMAL 2-DIMENSIONAL ECHOCARDIOGRAM WITH DOPPLER. NO VEGETATION OR THROMBUS. TECHNOLOGIST: KM MORRISON
--- NOTE | 2021-03-03 16:35 | P.PN ---
Subjective Date of Service: 03/03/21 Primary Care Provider: none Chief Complaint: possible CVA Subjective: Improving (Slight improvement in right-sided weakness and speech. Remains n.p.o., speech therapy unavailable for further evaluation) Review of Systems 10-point ROS is otherwise unremarkable Physical Examination - Vital Signs Temperature: 98.0 F Blood Pressure: 184/107 Pulse: 87 Respirations: 18 Pulse Ox (%): 95 Assessment & Plan Physician Review Additional Text: Physical exam: General: Alert, Oriented x3, Cooperative Respiratory: Clear to auscultation bilaterally, Normal air movement Cardiovascular: No edema, Normal S1 S2 Gastrointestinal: Soft and benign, No tenderness, Colostomy bag present Musculoskeletal: No swelling, No joint tenderness Integumentary: No rashes Neurological: Normal affect, normal tone, strength 4-/5 RUE and RLE, slight dr oop of lower R face Problem List R sided hemiparesis secondary to acute brain infarct HTN new diagnosis of diabetes hyperlipidemia imaging consistent with acute infarct patient's motor function improving. speech is more clear neuro consulted aspirin/plavix continue statin, folic acid PT/ST consulted NPO until speech can evaluate accuchecks and mild SSI consistently elevated blood pressures - started IV hydralazine prn start lisinopril once tolerating PO educated patient on lifestyle changes code: full Dispo: uninsured, no benefits dc home once cleared by PT/ST, will need PT education prior to discharge Time Spent Managing Pts Care (In Minutes): 45
[2021-03-03] MEDS ORDERED: LABETALOL 20 MG/4ML SYRINGE IV ONE (19:00)
[2021-03-03] MEDS ORDERED: POTASSIUM CL SA 10 MEQ TAB PO ONE (22:48)
[2021-03-04] MEDS: HYDRALAZINE HCL 20 MG/ML VIAL IV PRN (00:31)
[2021-03-04 05:47] LABS: Absolute Lymphocytes (CBC) 1.6 K/uL (0.7-4.9); Basophils % 0.5 % (0-1.3); Hematocrit 47.4 % (39.6-49.0); Lymphocytes % 14.1 % (15.3-44.8); MPV 8.4 fL (7.6-11.3)
[2021-03-04 05:53] LABS: BUN Blood Urea Nitrogen 9 mg/dL (7-18); Bicarbonate 23 mmol/L (21-32); Glucose Level 152 mg/dL (74-106); Potassium 3.4 mmol/L (3.5-5.1); Sodium Level 138 mmol/L (136-145)
--- NOTE | 2021-03-04 05:59 | P.PN ---
Subjective Date of Service: 03/04/21 Primary Care Provider: none Chief Complaint: possible CVA Subjective: Improving (strength/speech slightly improved further. trial of PO intake this morning. no new complaints, working with PT. BP slightly improved) Review of Systems 10-point ROS is otherwise unremarkable Physical Examination - Vital Signs Temperature: 97.4 F Blood Pressure: 201/95 Pulse: 90 Respirations: 18 Pulse Ox (%): 97 Assessment & Plan Physician Review Additional Text: Physical exam: General: Alert, Oriented x3, Cooperative Respiratory: Clear to auscultation bilaterally, Normal air movement Cardiovascular: No edema, Normal S1 S2 Gastrointestinal: Soft and benign, No tenderness, Colostomy bag present Musculoskeletal: No swelling, No joint tenderness Integumentary: No rashes Neurological: Normal affect, normal tone, strength 4/5 RUE and 4-/5RLE, slight droop of lower R face Problem List R sided hemiparesis secondary to acute CVA HTN new diagnosis of diabetes hyperlipidemia imaging consistent with acute infarct patient's motor function improving. speech is more clear neuro consulted aspirin/plavix continue statin, folic acid PT/ST consulted accuchecks and mild SSI start lisinopril and HCTZ with improvement educated patient on lifestyle changes code: full Dispo: uninsured, no benefits dc home once cleared by PT/ST, will need PT education prior to discharge anticipate dc tomorrow Time Spent Managing Pts Care (In Minutes): 40
[2021-03-04] MEDS ORDERED: POTASSIUM CL SA 10 MEQ TAB PO ONE ×2 (06:00→15:00)
[2021-03-04] MEDS: INSULIN -REGULAR HUMAN 50 UNIT/0.5 ML ML SQ SCH ×4 (07:30→20:21)
[2021-03-04] MEDS: ENOXAPARIN 40 MG/0.4 ML SQ SCH (09:00)
[2021-03-04] MEDS: ASPIRIN EC 81 MG TAB PO SCH (09:40)
[2021-03-04] MEDS: hydroCHLOROthiazide 25 MG TAB PO SCH (09:40)
[2021-03-04] MEDS: CLOPIDOGREL 75 MG TABLET PO SCH (09:40)
[2021-03-04] MEDS: lisinopriL 20 MG TAB PO SCH (09:41)
[2021-03-04] MEDS: FOLIC ACID 1 MG TABLET PO SCH (09:41)
[2021-03-04 12:35] VITALS: O2SAT 95
--- NOTE | 2021-03-04 16:09 | RAD REPORT ---
EXAM DESCRIPTION: RAD - Hip Right 2 View - 03/04/2021 4:02 pm CLINICAL HISTORY: fell, R postero-lateral hip pain COMPARISON: No comparisons FINDINGS: No acute fracture, dislocation or AVN pattern is seen.
[2021-03-05 06:12] LABS: BUN Blood Urea Nitrogen 14 mg/dL (7-18); Bicarbonate 25 mmol/L (21-32); Glucose Level 158 mg/dL (74-106); Magnesium 2.2 mg/dL (1.8-2.4); Potassium 3.4 mmol/L (3.5-5.1); Sodium Level 138 mmol/L (136-145)
[2021-03-05] MEDS: INSULIN -REGULAR HUMAN 50 UNIT/0.5 ML ML SQ SCH ×2 (07:30→11:30)
[2021-03-05] MEDS ORDERED: POTASSIUM CL SA 10 MEQ TAB PO ONE (09:00)
[2021-03-05] MEDS: ENOXAPARIN 40 MG/0.4 ML SQ SCH (09:33)
[2021-03-05] MEDS: FOLIC ACID 1 MG TABLET PO SCH (09:35)
[2021-03-05] MEDS: CLOPIDOGREL 75 MG TABLET PO SCH (09:35)
[2021-03-05] MEDS: lisinopriL 20 MG TAB PO SCH (09:35)
[2021-03-05] MEDS: ASPIRIN EC 81 MG TAB PO SCH (09:35)
[2021-03-05] MEDS: hydroCHLOROthiazide 25 MG TAB PO SCH (09:35)
[2021-03-05 12:09] VITALS: BP 144/90; TEMP 98
--- NOTE | 2021-03-05 12:39 | P.DS ---
Admission Date: 03/01/21 Discharge Date: 03/05/21 Primary Care Provider: none Disposition: ROUTINE DISCHARGE Discharge Condition: GOOD Reason for Admission: possible CVA Consultations: Neurology - Dr. Grace Procedures: CT - Ct Stroke Brain Wo Cont - 03/01/2021 7:39 am FINDINGS: No intracranial hemorrhage, mass, or cerebral edema. No acute cortical based infarction identifiable at this time. There is no cortical edema or sulcal effacement seen. There is a subtle diminished attenuation in the left external capsule relative to the right. The overlying insular cortex is not thickened or edematous. No extra-axial fluid collections. matter-white matter differentiation is preserved.No atrophy or measurable chronic ischemic changes. Ventricles are normal size. Visualized portions of the mastoid air cells, paranasal sinuses, and orbits are unremarkable. No globe or orbital content abnormality seen. Findings were telephoned to Dr Aldana at 7:41 a.m.. IMPRESSION: No CT evidence of acute intracranial process. Follow-up MR imaging could be performed for more sensitive assessment of the parenchyma acute CVA remains the primary diagnosis. Chest Single View - 03/01/2021 8:03 am FINDINGS: Lung volumes are low and the patient is rotated distorting the cardiomediastinal silhouette. Lung markings are accentuated by the diminished volume. A dense mass or consolidation is not identifiable. A minimal interstitial edema or infiltrate unlikely but cannot be excluded. Heart and vasculature are normal. No measurable pleural effusion and no pneumothorax. No acute bony abnormality seen. No acute aortic findings suspected. IMPRESSION: No acute cardiopulmonary process. CT - Neck Angio - 03/01/2021 8:26 am FINDINGS: No aneurysm or vascular malformation identified. No carotid or vertebral dissection. No aortic arch or great vessel origin abnormality seen. Vertebral artery origins unremarkable as well. No stenosis, vasculitis or other significant carotid artery finding. No focal abnormality of either vertebral artery. Basilar artery is normal. IMPRESSION: Negative CT angio neck examination. CT - Head angio - 03/01/2021 8:22 am FINDINGS: No aneurysm or vascular malformation identified. Slight vascular fullness the left sylvian fissure is believed to be a summation artifact of adjacent artery and vein. Major venous sinuses are patent. No stenosis, named branch occlusion, vasculitis or other significant vascular finding identifiable. IMPRESSION: Negative CT angio head examination. MRI - Brain W/Wo Cont - 03/01/2021 4:57 pm FINDINGS: Small area of abnormal signal within the white matter left frontal lobe and right thalamus compatible with old infarction. The ventricles are normal in caliber. Diffusion-weighted/ ADC mapping sequences demonstrate 2.1 x 0.9 centimeter area of abnormal signal within the white matter adjacent to posterior aspect of the left lateral ventricle. This is compatible with acute infarction. No abnormal enhancement within the brain is seen. An extra-axial fluid collection is not noted. Fluid within the sinuses/mastoids is not seen IMPRESSION: 2.1 x 0.9 centimeter acute left periventricular white matter infarct MRI - MRA Head Wo Cont - 03/01/2021 4:50 pm FINDINGS: The anterior cerebral, middle cerebral, posterior cerebral, distal internal carotid and basilar arteries do not demonstrate a significant stenosis. An aneurysm is not displayed. IMPRESSION: Unremarkable MRA brain. MRA Neck W/Wo Cont - 03/01/2021 4:56 pm FINDINGS: Mild plaque within common carotid, internal carotid and external carotid arteries . A high-grade stenosis is not noted. The vertebral arteries are codominant without visualization of an abnormality. IMPRESSION: Mild plaque within the carotid arteries USCarotid Artery Bilateral03/01/2021 6:37 pm FINDINGS: The velocity of the right internal carotid artery equals 48 cm/sec. The right ICA/CCA ratio .5 The velocity of the left internal carotid artery equals 59 cm/sec. The left ICA/CCA ratio .9 Mild plaque is present within the carotid arteries. The vertebral arteries demonstrate antegrade flow IMPRESSION: Mild plaque within the carotid arteries without evidence of a hemodynamically significant stenosis Echo (03/02): normal 2D echo with doppler. no vegetation or thrombus. Hip Right 2 View - 03/04/2021 4:02 pm COMPARISON: No comparisons FINDINGS: No acute fracture, dislocation or AVN pattern is seen. Problem List R sided hemiparesis secondary to acute CVA HTN new diagnosis of diabetes mellitus type 2, non-insulin dependent hyperlipidemia old CVA, asymptomatic h/o partial colectomy / colostomy placement Brief History of Present Illness: 45 y/o M with HTN who presents today with new onset right sided motor deficits. Last known normal was this morning before he went to bed. Woke up this morning and had trouble getting out of bed. C/o weakness and numbness on the R side and slurred speech. States this has never occurred before. Pt has not seen a doctor recently. Pt hypertensive upon arrival at ER. NIHSS of 6 Hospital Course: Patient was found to have an acute CVA on MRI which explained his symptoms. He was treated with aspirin, plavix, statin, folic acid. He had some improvement in his symptoms. He was evaluated by PT/OT/ST. He was discharged home and instructed on exercises to do at home. He was found to be hypertensive to >200 systolic. He was initially allowed to have permissive hypertension and then was treated with lisinopril and HCTZ with improvement of his BP to 150-160 systolic. He was instructed to f/u with his PCP in the next 1-2 weeks to monitor his BP and will likely need further adjustment. He was found to have HgbA1c: 9.9 and was started on metformin on discharge. Vital Signs/Physical Exam: Physical exam: General: Alert, Oriented x3, Cooperative Respiratory: Clear to auscultation bilaterally, Normal air movement Cardiovascular: No edema, Normal S1 S2 Gastrointestinal: Soft and benign, No tenderness, Colostomy bag present Musculoskeletal: No swelling, No joint tenderness Integumentary: No rashes Neurological: Normal affect, normal tone, strength 4/5 RUE and 4-/5RLE, slight droop of lower R face Temp Pulse Resp BP Pulse Ox 98.0 F 84 16 144/90 H 96 03/05/21 12:00 03/05/21 12:00 03/05/21 12:00 03/05/21 12:00 03/05/21 12:00 Laboratory Data at Discharge: WBC 11.20 K/uL (4.3-10.9) H D 03/04/21 05:24 Hgb 16.5 g/dL (13.6-17.9) 03/04/21 05:24 Hct 47.4 % (39.6-49.0) 03/04/21 05:24 Plt Count 234 K/uL (152-406) 03/04/21 05:24 PT 10.7 SECONDS (9.5-12.5) 03/01/21 07:45 INR 0.93 03/01/21 07:45 APTT 24.0 SECONDS (24.3-36.9) L 03/01/21 07:45 Sodium 138 mmol/L (136-145) 03/05/21 05:34 Potassium 3.4 mmol/L (3.5-5.1) L 03/05/21 05:34 BUN 14 mg/dL (7-18) 03/05/21 05:34 Creatinine 0.74 mg/dL (0.55-1.3) 03/05/21 05:34 Glucose 158 mg/dL (74-106) H 03/05/21 05:34 Magnesium 2.2 mg/dL (1.8-2.4) 03/05/21 05:34 Triglycerides 585 mg/dL (<150) H 03/02/21 05:57 Cholesterol 264 mg/dL (<200) H 03/02/21 05:57 LDL Cholesterol Direct 148 mg/dL (100-129) H 03/02/21 05:57 HDL Cholesterol 31 mg/dL (40-60) L 03/02/21 05:57 Cholesterol/HDL Ratio 8.52 03/02/21 05:57 Home Medications: Aspirin [Aspirin EC 81 MG] 81 mg PO DAILY 30 Days #30 tablet. 03/05/21 Atorvastatin Calcium [Lipitor] 40 mg PO BEDTIME 30 Days #30 tab 03/05/21 Clopidogrel Bisulfate [Plavix*] 75 mg PO DAILY 30 Days #30 tablet 03/05/21 Folic Acid 1 mg PO DAILY 30 Days #30 tablet 03/05/21 Metformin HCl [Glucophage*] 500 mg PO BIDWM 30 Days #60 tab 03/05/21 hydroCHLOROthiazide [Hydrochlorothiazide] 12.5 mg PO DAILY 30 Days #30 tablet 03/05/21 lisinopriL [Prinivil*] 20 mg PO DAILY 30 Days #30 tab 03/05/21 New Medications: Aspirin [Aspirin EC 81 MG] 81 mg PO DAILY 30 Days #30 tablet Folic Acid 1 mg PO DAILY 30 Days #30 tablet Metformin HCl [Glucophage*] 500 mg PO BIDWM 30 Days #60 tab hydroCHLOROthiazide [Hydrochlorothiazide] 12.5 mg PO DAILY 30 Days #30 tablet Atorvastatin Calcium [Lipitor] 40 mg PO BEDTIME 30 Days #30 tab Clopidogrel Bisulfate [Plavix*] 75 mg PO DAILY 30 Days #30 tablet lisinopriL [Prinivil*] 20 mg PO DAILY 30 Days #30 tab Physician Discharge Instructions: You are found to have a new stroke within the white matter adjacent to the posterior aspect of the left lateral ventricle. Dislocation explains your right-sided weakness. MRI also showed an old small stroke in the left frontal lobe and right thalamus. You are discharged with prescriptions for 2 new blood pressure medications, aspirin, Plavix, atorvastatin. These are all to help treat your high blood pressure and prevent further strokes. Follow-up with your PCP in 1 week, you may need further increase/addition of blood pressure medication. It is okay to have mildly elevated blood pressure over the next week. [id number] systolic blood pressure. You were also found to have a hemoglobin A1c of 9.9. Indicating diagnosis of diabetes mellitus type 2. You are discharged home with Metformin. Please follow-up with your PCP. Diet: ADA Activity: Fall precautions Followup: Kartik Grace MD [ASSOCIATE-ACTIVE - CAN ADMIT] - NONE,NONE [Primary Care Provider] - Time spent managing pt's care (in minutes): 45
[2021-03-05] MEDS ORDERED: ATORVASTATIN 40 MG TAB PO SCH (21:00)
== END 2021-03-05 13:38 | disposition home or self-care (01) | DRG 65 ==
LOC: ER 07:31 → EDBD 07:31 → ERHOLD 11:52 → 2ND 16:30
PROVIDERS: ADMIT Internal Medicine; ATTEND Internal Medicine
DX: I63.9 Cerebral infarction, unspecified (principal); G81.91 Hemiplegia, unspecified affecting right dominant side; R47.81 Slurred speech; I10 Essential (primary) hypertension; R29.706 NIHSS score 6; E11.9 Type 2 diabetes mellitus without complications; E78.5 Hyperlipidemia, unspecified; F17.210 Nicotine dependence, cigarettes, uncomplicated; Z93.3 Colostomy status; Z20.822 Contact with and (suspected) exposure to COVID-19
CPT/HCPCS: 36415; 70450; 70496; 70498; 70544; 70549; 70553; 71045; 80048; 80061; 81003; 81015; 82565; 82947; 83036; 83735; 84132; 84439; 84443; 84484; 85025; 85610; 85730; 92610; 93005; 93306; 93880; 96374; 97112; 97116; 97162; 97530; 99285; A9577; J0360; J1650; J3480; J7030; Q9967; U0003

== ENCOUNTER 2022-04-18 16:05 | Inpatient (IN) | payer SELFPAY ==
--- OUTSIDE RECORDS SUMMARY | 2022-04-18 16:09 | XMS REPORT | Continuity of Care Document ---
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 code = 0.4 MG/DL 2206) ALKALINE PHOSPHATASE (test 81 U/L code = 2204) AST (test code = 2218) 32 U/L ALT (test code = 2219) 38 U/L COMPREHENSIVE METABOLIC [id number] 00:00:00 Test Item Value Reference Range Interpretation Comments GLUCOSE (test code = 2217) 146 MG/DL BUN (test code = 2208) 11 MG/DL CREATININE (test code = 2214) 0.80 MG/DL eGFR AMER. (test code 127 ML/MIN/1.73 = 76520) eGFR NON- AMER. (test 109 ML/MIN/1.73 code = 44260) CALC BUN/CREAT (test code = 14 RATIO 2235) SODIUM (test code = 2231) 139 MEQ/L POTASSIUM (test code = 2228) 4.4 MEQ/L CHLORIDE (test code = 2215) 98 MEQ/L CARBON DIOXIDE (test code = 27 MEQ/L 2206) CALCIUM (test code = 2209) 9.4 MG/DL PROTEIN, TOTAL (test code = 7.5 G/DL 2228) ALBUMIN (test code = 2201) 4.4 G/DL CALC GLOBULIN (test code = 3.1 G/DL 2240) CALC A/G RATIO (test code = 1.4 RATIO 2234) BILIRUBIN, TOTAL (test code = 0.4 MG/DL 2206) ALKALINE PHOSPHATASE (test 81 U/L code = 2204) AST (test code = 2218) 32 U/L ALT (test code = 2219) 38 U/L COMPREHENSIVE METABOLIC [id number] 00:00:00 Test Item Value Reference Range Interpretation Comments GLUCOSE (test code = 2217) 146 MG/DL BUN (test code = 2208) 11 MG/DL CREATININE (test code = 2214) 0.80 MG/DL eGFR AMER. (test code 127 ML/MIN/1.73 = 41612) eGFR NON- AMER. (test 109 ML/MIN/1.73 code = 94551) CALC BUN/CREAT (test code = 14 RATIO 2235) SODIUM (test code = 2231) 139 MEQ/L POTASSIUM (test code = 2228) 4.4 MEQ/L CHLORIDE (test code = 2215) 98 MEQ/L CARBON DIOXIDE (test code = 27 MEQ/L 6) CALCIUM (test code = 2209) 9.4 MG/DL PROTEIN, TOTAL (test code = 7.5 G/DL 2228) ALBUMIN (test code = 2201) 4.4 G/DL CALC GLOBULIN (test code = 3.1 G/DL 2240) CALC A/G RATIO (test code = 1.4 RATIO 2234) BILIRUBIN, TOTAL (test code = 0.4 MG/DL 2206) ALKALINE PHOSPHATASE (test 81 U/L code = 2204) AST (test code = 2218) 32 U/L ALT (test code = 2219) 38 U/L COMPREHENSIVE METABOLIC [id number] 00:00:00 Test Item Value Reference Range Interpretation Comments GLUCOSE (test code = 2217) 146 MG/DL BUN (test code = 2208) 11 MG/DL CREATININE (test code = 2214) 0.80 MG/DL eGFR AMER. (test code 127 ML/MIN/1.73 = 20358) eGFR NON- AMER. (test 109 ML/MIN/1.73 code = 62057) CALC BUN/CREAT (test code = 14 RATIO 2235) SODIUM (test code = 2231) 139 MEQ/L POTASSIUM (test code = 2228) 4.4 MEQ/L CHLORIDE (test code = 2215) 98 MEQ/L CARBON DIOXIDE (test code = 27 MEQ/L 2205) CALCIUM (test code = 220) 9.4 MG/DL PROTEIN, TOTAL (test code = 7.5 G/DL 2228) ALBUMIN (test code = 2201) 4.4 G/DL CALC GLOBULIN (test code = 3.1 G/DL 2239) CALC A/G RATIO (test code = 1.4 RATIO 2233) BILIRUBIN, TOTAL (test code = 0.4 MG/DL 2206) ALKALINE PHOSPHATASE (test 81 U/L code = 2204) AST (test code = 2218) 32 U/L ALT (test code = 2219) 38 U/L
--- NOTE | 2022-04-18 16:53 | RAD REPORT ---
EXAM DESCRIPTION: CT - Ct Stroke Brain Wo Cont - 04/18/2022 4:43 pm CLINICAL HISTORY: L sided weakness, facial droop Headache, drowsiness, CVA symptomology COMPARISON: <Comparisons> TECHNIQUE: All CT scans are performed using dose optimization technique as appropriate and may inclu de automated exposure control or mA/KV adjustment according to patient size. FINDINGS: No intracranial hemorrhage, hydrocephalus or extra-axial fluid collection.There is area of diminished density seen in the left temporal region which could be related to ischemia. The paranasal sinuses and mastoids are clear. The calvarium is intact. IMPRESSION: No acute hemorrhage is seen. Area of diminished density is seen in the left temporal re gion which may indicate ischemia. Recommend MRI the brain for further evaluation. The findings were discussed with Dr Lofton in the ER on 04/18/2022 at 4:32 p.m. by telephone.
--- NOTE | 2022-04-18 16:58 | RAD REPORT ---
EXAM DESCRIPTION: RAD - Chest Single View - 04/18/2022 4:50 pm CLINICAL HISTORY: strok Chest pain. COMPARISON: Chest Single View dated 03/01/2021 FINDINGS: Portable technique limits examination quality. The lungs are grossly clear. The heart is normal in size. No displaced fractures. IMPRESSION: No acute intrathoracic process suspected.
[2022-04-18 17:39] LABS: Absolute Lymphocytes (CBC) 2.2 K/uL (0.7-4.9); Hematocrit 46.4 % (39.6-49.0); MCV 88.1 fL (80-100); MPV 8.7 fL (7.6-11.3); RBC Red Blood Cell Count 5.26 M/uL (4.33-5.43)
[2022-04-18 17:44] LABS: Protime INR 0.99
[2022-04-18 18:14] LABS: ALT/SGPT 45 U/L (12-78); AST/SGOT 21 U/L (15-37); Albumin 3.8 g/dL (3.4-5.0); Alkaline Phosphatase 69 U/L (45-117); BUN Blood Urea Nitrogen 25 mg/dL (7-18); Bicarbonate 31 mmol/L (21-32); Bilirubin Total 0.5 mg/dL (0.2-1.0); Glomerular Filtration Rate 73 ml/min (=/>90); Glucose Level 196 mg/dL (74-106); Magnesium 2.2 mg/dL (1.8-2.4); Protein, Total 7.9 g/dL (6.4-8.2); Sodium Level 136 mmol/L (136-145); Troponin High Sensitivity 10.5 pg/mL (<58.9)
[2022-04-18 18:16] LABS: Bilirubin Direct < 0.1 mg/dL (0-0.2)
[2022-04-18 18:17] LABS: Potassium 2.8 mmol/L (3.5-5.1)
[2022-04-18] MEDS ORDERED: POTASSIUM CL SA 10 MEQ TAB PO ONE ×2 (18:43)
--- NOTE | 2022-04-18 18:43 | RAD REPORT ---
EXAM DESCRIPTION: CT - Head angio - 04/18/2022 6:34 pm CLINICAL HISTORY: Neuro deficit, acute, stroke suspected Headache, drowsiness, CVA symptomology COMPARISON: Ct Stroke Brain Wo Cont dated 04/18/2022; Head angio dated 03/01/2021 TECHNIQUE: CT angiography of the head was performed with MIPs. All CT scans are performed using dose optimization technique as appropriate and may include automated exposure control or mA/KV adjustment according to patient size. FINDINGS: No evidence of aneurysm is detected. No flow-limiting stenosis or vascular malformation id entified. Antegrade flow is seen in the vertebral arteries. The vertebral arteries are codominant. The visualized dural venous sinuses are patent. IMPRESSION: No significant flow abnormality is detected.
--- NOTE | 2022-04-18 18:46 | RAD REPORT ---
EXAM DESCRIPTION: CT - Neck Angio - 04/18/2022 6:34 pm CLINICAL HISTORY: Neuro deficit, acute, stroke suspected Headache, drowsiness, CVA symptomology COMPARISON: Neck Angio dated 03/01/2021 TECHNIQUE: CT angiography of the neck vessels was performed with MIPs. All CT scans are performed using dose optimization technique as appropriate and may include automated exposure control or mA/KV adjustment according to patient size. FINDINGS: A left aortic arch is identified with normal three vessel configuration of the great vesse ls. No significant flow abnormality is seen of the common carotid bilaterally. No significant stenosis is identified involving the cervical segments of both internal carotid arteri es. Normal flow is seen within both vertebral arteries. IMPRESSION: No significant flow abnormality of the neck vessels is identified.
[2022-04-18 18:56] LABS: Urine Blood Negative (Negative); Urine Glucose Negative (Negative); Urine Protein 1+ (Negative); Urine Specific Gravity 1.025 (1.005-1.030); Urine pH 5.5 (5.0-7.0)
--- NOTE | 2022-04-18 19:03 | EDPHYS ---
Physician Documentation [facility] Name: Albin Francis Age: 46 yrs Sex: Male : 1975 Arrival Date: 04/18/2022 Time: 16:07 Bed 13 Private MD: ED Physician Chaya Lofton HPI: 04/18 16:39 This 46 yrs old Male presents to ER via Wheelchair with complaints of Numbness sd2 Of Face. 16:39 46-year-old male with a history of hypertension, diabetes and prior CVA presents with sd2 chief complaint of left-sided facial droop, facial numbness and left arm weakness that started at 2 PM yesterday. The patient reports all of his previous deficits from his stroke were on the right side and have been improving since earlier this year. He is currently only taking baby aspirin daily. He is not currently on any blood thinners. He denies any chest pain or shortness of breath.. Historical: - Allergies: 16:17 No Known Allergies; vg1 - Immunization history:: Client reports receiving the 2nd dose of the Covid vaccine. - Social history:: Smoking status: Patient reports the use of cigarette tobacco products, smokes one-half pack cigarettes per day. ROS: 16:39 Constitutional: Negative for fever, chills, and weight loss, Eyes: Negative for injury, sd2 pain, redness, and discharge, Cardiovascular: Negative for chest pain, palpitations, and edema, Respiratory: Negative for shortness of breath, cough, wheezing. Abdomen/GI: Negative for abdominal pain, nausea, vomiting, diarrhea. MS/Extremity: Negative for injury and deformity, Skin: Negative for injury, rash, and discoloration, Neuro: Negative for headache, Positive for numbness, weakness and facial droop. Exam: 16:39 Radiologist reports: abnormal signal on L side of brain sd2 16:39 Constitutional: This is a well developed, well nourished patient who is awake, alert, and in no acute distress. Head/Face: Normocephalic, atraumatic. Eyes: EOMI, normal conjunctiva bilaterally Chest/axilla: Normal chest wall appearance and motion. Nontender with no deformity. Cardiovascular: Regular rate and rhythm with a normal S1 and S2. No gallops, murmurs, or rubs. 2+ distal pulses. Respiratory: Lungs have equal breath sounds bilaterally, clear to auscultation and percussion. No rales, rhonchi or wheezes noted. No increased work of breathing, no retractions or nasal flaring. Abdomen/GI: Soft, non-tender, with normal bowel sounds. No guarding or rebound. No evidence of tenderness throughout. Skin: Warm, dry with normal turgor. Normal color with no rashes, no lesions, and no evidence of cellulitis. MS/ Extremity: Pulses equal, no cyanosis. Neurovascular intact. Full, normal range of motion. Ambulatory without difficulty. Neuro: Awake and alert, GCS 15, oriented to person, place, time, and situation. L sided facial droop present with tongue deviation to the left. Decreased sensation to L side of face and L arm. No appreciable drift of extremities. 5/5 strength to RUE/RLE/LLE, 4/5 to LUE. Psych: Awake, alert, with orientation to person, place and time. Behavior, mood, and affect are within normal limits. Vital Signs: 16:13 BP 140 / 92; Pulse 83; Resp 17; Temp 98.6(O); Pulse Ox 98% on R/A; Weight 9.07 kg; vg1 Height 5 ft. 3 in. (160.02 cm); Pain 0/10; 16:45 BP 135 / 93; Pulse 80; ko1 17:30 BP 130 / 90; Pulse 73; Pulse Ox 89% ; ko1 16:13 Body Mass Index 3.54 (9.07 kg, 160.02 cm) vg1 MDM: 16:24 Patient medically screened. sd2 16:39 Differential diagnosis: CVA, TIA, metabolic disorder, drug effects, among others. Data sd2 reviewed: vital signs, nurses notes. 19:00 Data reviewed: lab test result(s), EKG, radiologic studies. Counseling: I had a sd2 detailed discussion with the patient and/or guardian regarding: the historical points, exam findings, and any diagnostic results supporting the discharge/admit diagnosis, lab results, radiology results, the need for further work-up and treatment in the hospital. 04/18 16:26 Order name: Basic Metabolic Panel; Complete Time: 18:30 sd2 04/18 16:26 Order name: CBC with Diff; Complete Time: 18:30 sd2 04/18 16:26 Order name: Hepatic Function; Complete Time: 18:30 sd2 04/18 16:26 Order name: High Sensitivity Troponin; Complete Time: 18:30 sd2 04/18 16:26 Order name: Magnesium; Complete Time: 18:30 sd2 04/18 16:26 Order name: Protime (+inr); Complete Time: 18:30 sd2 04/18 16:26 Order name: Ptt, Activated; Complete Time: 18:30 sd2 04/18 16:26 Order name: UDS; Complete Time: 19:24 sd2 04/18 18:25 Order name: Glucose, Ancillary Testing; Complete Time: 18:30 EDMS 04/18 18:56 Order name: Urine Dipstick-Ancillary; Complete Time: 19:24 EDMS 04/18 20:11 Order name: SARS-COV-2 Antigen Rapid 2 04/18 20:41 Order name: SARS-COV-2 Antigen Rapid; Complete Time: 23:44 EDMS 04/18 22:15 Order name: Glucose, Ancillary Testing; Complete Time: 23:44 EDMS 04/19 03:04 Order name: CBC with Automated Diff EDMS 04/18 16:26 Order name: CT Stroke Brain w/o Contrast; Complete Time: 17:00 sd2 04/18 16:26 Order name: Stroke CXR 1 View; Complete Time: 17:00 sd2 04/18 16:26 Order name: EKG; Complete Time: 16:27 sd2 04/18 16:26 Order name: Accucheck; Complete Time: 18:14 sd2 04/18 17:41 Order name: CT Head Angio; Complete Time: 18:49 sd2 04/18 17:41 Order name: CT Neck Angio; Complete Time: 18:49 sd2 04/19 03:30 Order name: Basic Metabolic Panel EDMS 04/19 03:30 Order name: Phosphorus EDMS 04/19 03:30 Order name: Lipid Profile EDMS 04/19 03:30 Order name: Magnesium EDMS 04/19 03:30 Order name: Thyroid Stimulating Hormone EDMS 04/19 07:27 Order name: Glucose, Ancillary Testing EDMS 04/19 10:07 Order name: MRI EDMS 04/19 10:10 Order name: MRI EDMS 04/19 10:25 Order name: MRI EDMS 04/18 16:26 Order name: Cardiac monitoring; Complete Time: 17:12 sd2 04/18 16:26 Order name: EKG - Nurse/Tech; Complete Time: 17:37 sd2 04/18 16:26 Order name: IV Saline Lock; Complete Time: 17:25 sd2 04/18 16:26 Order name: Labs collected and sent; Complete Time: 17:25 sd2 04/18 16:26 Order name: NPO; Complete Time: 17:11 sd2 04/18 16:26 Order name: O2 Per Protocol; Complete Time: 17:11 sd2 04/18 16:26 Order name: O2 Sat Monitoring; Complete Time: 17:11 sd2 04/18 16:26 Order name: Stroke Swallow Screen; Complete Time: 18:22 sd2 Administered Medications: 18:45 Drug: Potassium Chloride 40 mEq Route: PO; ko1 Disposition Summary: 04/18/22 19:03 Hospitalization Ordered Hospitalization Status: Inpatient Admission sd2 Provider: Stefan South sd2 Condition: Stable sd2 Problem: new sd2 Symptoms: are unchanged sd2 Bed/Room Type: Standard sd2 Location: Telemetry/MedSurg (Inpatient)(04/19/22 09:26) ja1 Room Assignment: 430(04/19/22 09:26) ja Diagnosis - Cerebrovascular accident sd2 Forms: - Medication Reconciliation Form sd2 - SBAR form sd2 Signatures: Dispatcher [employer] Edith Grady RN Tobias Benavidez RN RN Odalys Franks RN RN Chaya Nelson MD MD sd2 Dianna Dietrich RN RN ko1 Stephanie Weston PAEmmie PAEmmie sb4 Corrections: (The following items were deleted from the chart) 19:42 19:03 Telemetry/MedSurg (Inpatient) sd2 cg 19:42 19:03 sd2 cg 04/19 09:26 04/18 19:42 [facility] ER HOLD cg ja1 04/19 09:04/18 19:42 ERHOLD- cg ja1
--- NOTE | 2022-04-18 19:03 | ER ---
Nurse's Notes [facility] Name: Albin Francis Age: 46 yrs Sex: Male : 1975 Arrival Date: 04/18/2022 Time: 16:07 Bed 13 Private MD: Diagnosis: Cerebrovascular accident Presentation: 04/18 16:13 Chief complaint: Patient states: left sided weakness, facial droop and slurred speech vg1 began yesterday around 1400. Stated unable to drink or eat, food will fall out of mouth. Coronavirus screen: Vaccine status: Patient reports receiving the 2nd dose of the covid vaccine. Client denies travel out of the [place] in the last 14 days. Ebola Screen: Patient negative for fever greater than or equal to 101.5 degrees Fahrenheit, and additional compatible Ebola Virus Disease symptoms Patient denies exposure to infectious person. Initial Sepsis Screen: Does the patient meet any 2 criteria? No. Patient's initial sepsis screen is negative. Does the patient have a suspected source of infection? No. Patient's initial sepsis screen is negative. Risk Assessment: Do you want to hurt yourself or someone else? Patient reports no desire to harm self or others. Onset of symptoms was April 17, 2022 at 14:00. 16:13 Method Of Arrival: Wheelchair vg1 16:13 Acuity: JORDAN 2 vg1 Triage Assessment: 16:19 General: Appears uncomfortable, Behavior is calm, cooperative. Pain: Denies pain. vg1 Neuro: Level of Consciousness is awake, alert, obeys commands, Oriented to person, place, time, situation, Natural Resource Manager are weak on left Weakness in left hand(s) Gait is unsteady, Speech is slurred, Facial droop on left. Historical: - Allergies: 16:17 No Known Allergies; vg1 - Immunization history:: Client reports receiving the 2nd dose of the Covid vaccine. - Social history:: Smoking status: Patient reports the use of cigarette tobacco products, smokes one-half pack cigarettes per day. Screenin:45 Abuse screen: Denies threats or abuse. Denies injuries from another. Nutritional ko1 screening: No deficits noted. Tuberculosis screening: No symptoms or risk factors identified. Fall Risk None identified. Assessment: 16:45 General: Appears in no apparent distress. comfortable, Behavior is calm, cooperative, ko1 appropriate for age. Pain: Denies pain. Neuro:. 16:45 Neuro: Speech is slurred, Facial droop on left, Reports. Cardiovascular: No deficits ko1 noted. Respiratory: No deficits noted. GI: No deficits noted. : No deficits noted. EENT: No deficits noted. Derm: No deficits noted. Musculoskeletal:. Musculoskeletal: No deficits noted. 19:34 General: Appears comfortable, obese, Behavior is calm, cooperative, appropriate for aa9 age. Pain: Denies pain. Neuro: Level of Consciousness is awake, alert, obeys commands, Oriented to person, place, time, situation, Speech is slurred, Facial droop on left. Cardiovascular: Patient's skin is warm and dry. Respiratory: Airway is patent Respiratory effort is even, unlabored. Vital Signs: 16:13 BP 140 / 92; Pulse 83; Resp 17; Temp 98.6(O); Pulse Ox 98% on R/A; Weight 9.07 kg; vg1 Height 5 ft. 3 in. (160.02 cm); Pain 0/10; 16:45 BP 135 / 93; Pulse 80; ko1 17:30 BP 130 / 90; Pulse 73; Pulse Ox 89% ; ko1 16:13 Body Mass Index 3.54 (9.07 kg, 160.02 cm) vg1 ED Course: 16:07 Patient arrived in ED. rg4 16:17 Triage completed. vg1 16:22 Dianna Dietrich, AIDEN is Primary Nurse. ko1 16:24 Chaya Lofton MD is Attending Physician. sd2 16:44 CT Stroke Brain w/o Contrast In Process Unspecified. EDMS 16:45 Inserted saline lock: 20 gauge in left antecubital area, using aseptic technique. Blood ko1 collected. 16:45 Patient has correct armband on for positive identification. Fall risk band placed. Bed ko1 in low position. Call light in reach. Side rails up X 1. Client placed on continuous cardiac and pulse oximetry monitoring. NIBP monitoring applied. 16:45 Patient notified of wait time. aa9 16:52 Stroke CXR 1 View In Process Unspecified. EDMS 17:25 Basic Metabolic Panel Sent. ko1 17:25 CBC with Diff Sent. ko1 17:25 Hepatic Function Sent. ko1 17:25 High Sensitivity Troponin Sent. ko1 17:25 Magnesium Sent. ko1 17:25 Protime (+inr) Sent. ko1 17:25 Ptt, Activated Sent. ko1 18:36 CT Head Angio In Process Unspecified. EDMS 18:36 CT Neck Angio In Process Unspecified. EDMS 18:56 UDS Sent. ko1 19:02 Stefan South MD is Hospitalizing Provider. sd2 20:48 SARS-COV-2 Antigen Rapid Sent. aa9 04/19 03:05 No provider procedures requiring assistance completed. Patient admitted, IV remains in aa9 place. Administered Medications: 04/18 18:45 Drug: Potassium Chloride 40 mEq Route: PO; ko1 Medication: 20:00 VIS not applicable for this client. aa9 Outcome: 19:03 Decision to Hospitalize by Provider. sd2 20:00 Admitted to ER Hold. Please see [facility] for further documentation. aa9 20:00 Condition: stable 20:00 Instructed on the need for admit. 04/19 11:17 Patient left the ED. Signatures: Dispatcher [employer] EDMN Rosalie Merrill, AIDEN RN Kristie Velasco rg4 Odalys Iyer RN RN [email or web address] Chaya Lofton MD MD sd2 Paola Carbajal, AIDEN RN aa9 Dianna Dietrich, AIDEN RN ko1 Corrections: (The following items were deleted from the chart) 04/18 18:41 17:30 BP 130 / 90; Pulse 73bpm; Pulse Ox 97%; ko1 ko1
[2022-04-18 19:23] LABS: Barbiturates NEGATIVE (NEGATIVE); Benzodiazepines NEGATIVE (NEGATIVE); Cocaine NEGATIVE (NEGATIVE); METHAMPHETAM NEGATIVE (NEGATIVE); Methadone NEGATIVE (NEGATIVE); Opiates NEGATIVE (NEGATIVE); Phencyclidine NEGATIVE (NEGATIVE); THC Cannibis NEGATIVE (NEGATIVE)
[2022-04-18 20:41] LABS: SARS-CoV-2 Antigen Rapid Res Negative (Negative)
--- NOTE | 2022-04-18 20:46 | P.HP ---
Certification for Inpatient Patient admitted to: Inpatient With expected LOS: <2 Midnights Patient will require the following post-hospital care: None Practitioner: I am a practitioner with admitting privileges, knowledge of patient current condition, hospital course, and medical plan of care. Services: Services provided to patient in accordance with Admission requirements found in Title 42 Section 412.3 of the Code of Federal Regulations Patient History Date of Service: 04/18/22 Reason for admission: CVA History of Present Illness: Patient is a 46-year-old male with past medical history of CVA, hypertension, and type 2 diabetes who presented to the ED with complaints of left-sided facial droop, facial numbness and left arm weakness that started at 2 PM yesterday. He reports that he has permanent right-sided deficits from previous CVA that have been improving. He is only on [address] brain showed "no acute hemorrhage seen. Area of diminished density is seen in the left temporal region which may indicate ischemia. Recommend MRI of the brain for further evaluation." CT angio negative. Labs unremarkable except for potassium 2.8. He was given supplemental potassium in the ED. He passed his bedside swallow. Patient is admitted for further management. Allergies No Known Allergies Allergy (Unverified 03/01/21 12:17) Home medications list reviewed: Yes Home Medications: Aspirin [Aspirin EC 81 MG] 81 mg PO DAILY 30 Days #30 03/05/21 Atorvastatin Calcium [Lipitor] 40 mg PO BEDTIME 30 Days #30 tab 03/05/21 Clopidogrel Bisulfate [Plavix*] 75 mg PO DAILY 30 Days #30 tablet 03/05/21 Folic Acid 1 mg PO DAILY 30 Days #30 tablet 03/05/21 Metformin HCl [Glucophage*] 500 mg PO BIDWM 30 Days #60 tab 03/05/21 hydroCHLOROthiazide [Hydrochlorothiazide] 12.5 mg PO DAILY 30 Days #30 tablet 03/05/21 lisinopriL [Prinivil*] 20 mg PO DAILY 30 Days #30 tab 03/05/21 - Past Medical/Surgical History Diabetic: No -: HTN -: tobacco use -: CVA -: colostomy Psychosocial/ Personal History: lives with - Social History Smoking Status: Current every day smoker Alcohol use: Yes CD- Drugs: No Caffeine use: Yes Place of Residence: Home Review of Systems Neurological: Weakness, As per HPI Physical Examination - Physical Exam General: Alert, In no apparent distress HEENT: Atraumatic, PERRLA, EOMI, Sclerae nonicteric Neck: Supple, 2+ carotid pulse no bruit, No LAD, Without JVD or thyroid abnormality Respiratory: Clear to auscultation bilaterally, Normal air movement Cardiovascular: Regular rate/rhythm, Normal S1 S2 Gastrointestinal: Normal bowel sounds, No tenderness Musculoskeletal: No tenderness Integumentary: No rashes Neurological: Sensation intact, Normal affect - Studies Laboratory Data (last 24 hrs) 04/18/22 17:22: PT 10.9, INR 0.99, APTT 31.6 04/18/22 17:22: WBC 9.80, Hgb 16.2, Hct 46.4, Plt Count 240 04/18/22 17:22: Sodium 136, Potassium 2.8 L*, BUN 25 H, Creatinine 1.22, Glucose 196 H, Magnesium 2.2, Total Bilirubin 0.5, AST 21, ALT 45, Alkaline Phosphatase 69 Assessment and Plan - Problems (Diagnosis) (1) Acute CVA (cerebrovascular accident) Current Visit: Yes Status: Acute (2) Hypokalemia Current Visit: Yes Status: Acute (3) Hypertension Current Visit: Yes Status: Chronic Qualifiers: Hypertension type: primary hypertension Qualified Code(s): I10 - Essential (primary) hypertension (4) Type 2 diabetes mellitus Current Visit: Yes Status: Chronic Qualifiers: Diabetes mellitus assisted insulin use: without program arranger use Diabetes mellitus complication status: with hyperglycemia Qualified Code(s): E11.65 - Type 2 diabetes mellitus with hyperglycemia - Plan -MRI stroke protocol and echo ordered -Neurology consulted -[facility] Accu-Cheks with mild sliding scale diabetic diet -Aspirin, Plavix, folic acid daily -Lipid panel and A1C pending -Physical therapy consult. We do not have speech therapy available at this time . Patient passed bedside swallow. -Monitor and replete electrolytes per protocol -Reconcile and continue home medications -Lovenox for VTE ppx -Full code Patient had previous CVA and is prescribed plavix, aspirin, and folic acid but has only been taking 81 mg aspirin daily. Counseled patient on importance of taking all medications prescribed. Discharge Plan: Home Plan to discharge in: 48 Hours - Advance Directives Does patient have a Living Will: No Does patient have a Durable POA for Healthcare: No - Code Status/Comfort Care Code Status Assessed: Yes (Full) Critical Care: No Time Spent Managing Pts Care (In Minutes): 50
[2022-04-18] MEDS ORDERED: ONDANSETRON 4 MG/2 ML VIAL IV PRN (20:47)
[2022-04-18] MEDS ORDERED: ACETAMINOPHEN 500 MG TAB PO PRN (20:47)
[2022-04-18] MEDS: ATORVASTATIN 40 MG TAB PO SCH (21:00)
[2022-04-18] MEDS ORDERED: ATORVASTATIN 20 MG TAB PO SCH (21:00)
[2022-04-18] MEDS: INSULIN -REGULAR HUMAN 50 UNIT/0.5 ML ML SQ SCH (21:00)
[2022-04-18] MEDS ORDERED: ATORVASTATIN 20 MG TAB ONE (21:55)
[2022-04-19 02:58] LABS: Absolute Lymphocytes (CBC) 2.5 K/uL (0.7-4.9); Hematocrit 47.4 % (39.6-49.0); Lymphocytes % 22.4 % (15.3-44.8); MCV 88.4 fL (80-100); MPV 8.4 fL (7.6-11.3); RBC Red Blood Cell Count 5.36 M/uL (4.33-5.43)
[2022-04-19 03:21] VITALS: BMI 35.4
[2022-04-19 03:28] LABS: Magnesium 2.3 mg/dL (1.8-2.4); Phosphorus 3.2 mg/dL (2.5-4.9); Potassium 3.5 mmol/L (3.5-5.1); Thyroid Stimulating Hormone 1.73 uIU/mL (0.360-3.740)
[2022-04-19] MEDS: INSULIN -REGULAR HUMAN 50 UNIT/0.5 ML ML SQ SCH ×4 (07:30→21:00)
[2022-04-19] MEDS ORDERED: INFLUENZA VACCINE (for 6+ mo) 0.5 ML DOSE IMVAC ONE ×2 (08:00→09:42)
[2022-04-19] MEDS: ASPIRIN EC 81 MG TAB PO SCH (09:00)
[2022-04-19] MEDS: CLOPIDOGREL 75 MG TABLET PO SCH (09:00)
[2022-04-19] MEDS: FOLIC ACID 1 MG TABLET PO SCH (09:00)
[2022-04-19] MEDS: ENOXAPARIN 40 MG/0.4 ML SQ SCH (09:00)
[2022-04-19] MEDS ORDERED: CLOPIDOGREL 75 MG TABLET ONE (09:33)
[2022-04-19] MEDS ORDERED: FOLIC ACID 1 MG TABLET ONE (09:33)
[2022-04-19] MEDS ORDERED: ASPIRIN EC 81 MG TAB PO ONE (09:33)
[2022-04-19] MEDS ORDERED: ENOXAPARIN 40 MG/0.4 ML SQ ONE (09:34)
--- NOTE | 2022-04-19 10:05 | RAD REPORT ---
EXAM DESCRIPTION: MRI - Brain W/Wo Cont - 04/19/2022 9:46 am CLINICAL HISTORY: left sided deficits Headache, drowsiness, CVA symptomology COMPARISON: MRA Head Wo Cont dated 04/19/2022 TECHNIQUE: Multi-sequence, multiplanar MR imaging of the brain was performed with contrast. FINDINGS: No intracranial hemorrhage, hydrocephalus, or extra-axial fluid collection.Areas of T2 and FLAIR hyperintensity are noted in the periventricular and deep white matter most compatible with chr onic microvascular ischemia. Evidence of remote infarction in the left centrum semiovale white matter is seen with wallerian degeneration in the left brainstem. No edema or shift of midline structures. No intracranial mass. There is a 10 mm acute lacunar CVA in the right basal ganglia this is in the re gion of the posterior limb of the right internal capsule. No hemorrhagic component. The midline structures are normally formed. Mastoid air cells and paranasal sinuses are clear. Post-contrast images show no abnormal enhancement to suggest tumor or infection. IMPRESSION: 10 mm acute nonhemorrhagic CVA is seen right basal ganglia. No pathologic post-contrast enhancement suspected.
--- NOTE | 2022-04-19 10:09 | RAD REPORT ---
EXAM DESCRIPTION: MRI - MRA Head Wo Cont - 04/19/2022 9:46 am CLINICAL HISTORY: left sided deficits CVA COMPARISON: Head angio dated 04/18/2022 FINDINGS: 3D noncontrast [id number] MR angiography of the [place] was performed. No aneurysm, flow-limiting stenosis or vascular malformation is seen. Forward flow seen in codominant vertebral arteries. The visualized dural venous sinuses appear patent. IMPRESSION: No significant flow abnormality of the [place] is identified.
--- NOTE | 2022-04-19 10:25 | RAD REPORT ---
EXAM DESCRIPTION: MRI - MRA Neck W/Wo Cont - 04/19/2022 9:46 am CLINICAL HISTORY: left sided deficits Headache, CVA, drowsiness COMPARISON: MRA Neck W/Wo Cont dated 03/01/2021 FINDINGS: Contrast enhance 2D [id number] MR angiography of the neck vessels was performed. There is a left aortic arch present. Both common carotid arteries and subclavian arteries are widely patent. There is no significant carot id stenosis identified. Antegrade flow is seen in both vertebral arteries. IMPRESSION: No significant flow abnormality detected.
--- NOTE | 2022-04-19 14:03 | EKG ---
Test Date: 2022-04-18 Test Time: 17:38:02 [employer] Specialist: JITENDRA MEASUREMENT RESULTS: Intervals: Rate: 70 OH: 154 QRSD: 102 QT: 386 QTc: 416 [place]: P: 35 OH: 154 QRS: -8 T: 202 INTERPRETIVE STATEMENTS: Normal sinus rhythm ST & T wave abnormality, consider inferolateral ischemia Abnormal ECG Compared to ECG 03/01/2021 07:40:52 ST (T wave) deviation now present Possible ischemia now present Electronically Signed On 04-19-22 14:01:06 CDT by Kwaku Thompson
[2022-04-19 17:37] VITALS: O2SAT 97
[2022-04-19] MEDS ORDERED: POTASSIUM CL SA 10 MEQ TAB PO ONE (20:13)
[2022-04-19] MEDS ORDERED: ATORVASTATIN 40 MG TAB PO SCH (21:00)
[2022-04-19] MEDS: ATORVASTATIN 40 MG TAB PO SCH (21:50)
--- NOTE | 2022-04-20 07:05 | ECHO ---
HEIGHT: 5 ft 3 in WEIGHT: 200 lb 0 oz DATE OF STUDY: 04/19/[address]: Stephanie Weston 2-DIMENSIONAL: YES M.MODE: YES DOPPLER: YES COLOR FLOW: YES TDS: PORTABLE: YES DEFINITY: BUBBLE STUDY: YES DIAGNOSIS: STROKE CARDIAC HISTORY: CATHERIZATION: SURGERY: PROSTHETIC VALVE: PACEMAKER: MEASUREMENTS (cm) DIASTOLIC (NORMALS) SYSTOLIC (NORMALS) IVSd 1.4 (0.6-1.2) LA Diam 2.8 (1.9-4.0) LVEF 52% LVIDd 4.5 (3.5-5.7) LVIDs 3.3 (2.0-3.5) %FS 26% LVPWd 1.5 (0.6-1.2) Ao Diam 3.0 (2.0-3.7) 2 DIMENSIONAL ASSESSMENT: RIGHT ATRIUM: NORMAL LEFT ATRIUM: NORMAL RIGHT VENTRICLE: NORMAL LEFT VENTRICLE: NORMAL TRICUSPID VALVE: NORMAL MITRAL VALVE: NORMAL PULMONIC VALVE: NORMAL AORTIC VALVE: NORMAL PERICARDIAL EFFUSION: NONE AORTIC ROOT: NORMAL LEFT VENTRICULAR WALL MOTION: NORMAL DOPPLER/COLOR FLOW: SEE BELOW COMMENTS: NORMAL LEFT VENTRICULAR EJECTION FRACTION 50-55%. MILD TRICUSPID REGURGITATION. BUBBLE STUDY WAS NEGATIVE FOR INTRA CARDIAC SHUNT. POOR WINDOWS. TECHNOLOGIST: KM MORRISON
[2022-04-20] MEDS: INSULIN -REGULAR HUMAN 50 UNIT/0.5 ML ML SQ SCH ×2 (07:30→11:30)
[2022-04-20] MEDS: FOLIC ACID 1 MG TABLET PO SCH (08:36)
[2022-04-20] MEDS: CLOPIDOGREL 75 MG TABLET PO SCH (08:36)
[2022-04-20] MEDS: ENOXAPARIN 40 MG/0.4 ML SQ SCH (08:36)
[2022-04-20] MEDS: ASPIRIN EC 81 MG TAB PO SCH (08:36)
[2022-04-20 10:13] VITALS: BP 130/81; TEMP 97.9
== END 2022-04-20 12:49 | disposition home or self-care (01) | DRG 66 ==
LOC: ER 16:05 → ERHOLD 19:57 → 4TH 04-19 10:43
PROVIDERS: ADMIT Hospitalist; ATTEND Hospitalist
DX: I63.9 Cerebral infarction, unspecified (principal); I10 Essential (primary) hypertension; E11.65 Type 2 diabetes mellitus with hyperglycemia; E87.6 Hypokalemia; G83.24 Monoplegia of upper limb affecting left nondominant side; F17.210 Nicotine dependence, cigarettes, uncomplicated; R20.0 Anesthesia of skin; R29.810 Facial weakness; Z23 Encounter for immunization; Z86.73 Personal history of transient ischemic attack (TIA), and cerebral infarction without residual deficits; Z91.14 Patient's other noncompliance with medication regimen; Z79.82 Long term (current) use of aspirin; Z79.02 Long term (current) use of antithrombotics/antiplatelets; Z79.84 Long term (current) use of oral hypoglycemic drugs; Z79.899 Other long term (current) drug therapy; Z20.822 Contact with and (suspected) exposure to COVID-19
CPT/HCPCS: 36415; 70450; 70496; 70498; 70544; 70549; 70553; 71045; 80048; 80061; 80076; 80307; 81003; 82947; 83735; 84100; 84443; 84484; 85025; 85610; 85730; 87811; 90471; 93005; 93306; 97116; 97161; 99285; A9577; J1650; Q2035; Q9967